=== PATIENT | female | born 1955 | race Two or more races ===

== ENCOUNTER 2021-02-04 14:49 | Inpatient (IN) | payer MEDICARE ==
[~2021-02-04] VITALS: Ht 154.9 cm; Wt 99.8 kg
[2021-02-04] MEDS ORDERED: ALBU8.5H8 IH (17:40)
[2021-02-04] MEDS ORDERED: LOSA25TA27 PO (17:40)
[2021-02-04] MEDS ORDERED: GLIP10TA11 PO (17:40)
[2021-02-04] MEDS ORDERED: BENZ0.5T43 PO (17:40)
[2021-02-04] MEDS ORDERED: METF-442 PO (17:40)
[2021-02-04] MEDS ORDERED: KETO5DRO9 OP (17:40)
[2021-02-04] MEDS ORDERED: ATOR20TA PO (17:40)
[2021-02-04] MEDS ORDERED: ARIP400S IM (17:40)
--- NOTE | 2021-02-04 17:45 | NUR ---
RN NOTE / ADMISSION - 65 Y/O FEMALE ARRIVED IN RESTRAINTS AND ON GURNEY VIA AMBULANCE TO GPS. SHE IS ON 5150 GD. PT SCREAMING, OPPOSITIONAL TO ALL CARE AND QUESTIONING. REFUSING EVERYTHING. REMOVED FROM RESTRAINTS AND PLACED IN BED. SIDE RAILS UP X FOUR. PT REFUSED VS, MRSA, PHOTO AND SKIN CHECK. PT W HX OF SCHIZOPHRENIA, ASTHMA, BIPOLAR DO, HLD, HTN, PVD AND OBESITY. SHE HAS NKA. PT WAS GIVEN MULTIPLE IM INJECTIONS DUE TO LABILE MOOD AND BEHAVIORAL ISSUES. SHE IS STILL QUITE LABILE, IRRITABLE AND LOUD. WILL BE ENDORSING TO NOC SHIFT. DR MCMILLAN AWARE OF ADMISSION AND ORDERS RECEIVED.
[2021-02-04] MEDS ORDERED: ACETAMINOPHEN 325 MG TABLET PO PRN (18:00)
[2021-02-04] MEDS ORDERED: TEMAZEPAM 7.5 MG CAPSULE PO PRN (18:00)
[2021-02-04] MEDS ORDERED: BLOOD SUGAR DIAGNOSTIC 1 EACH STRIP IN ONE (18:00)
[2021-02-04] MEDS ORDERED: MAGNESIUM HYDROXIDE 30 ML UDC PO PRN (18:00)
[2021-02-04] MEDS ORDERED: MAG HYDROX/AL HYDROX/SIMETH 30 ML UDC PO PRN (18:00)
--- NOTE | 2021-02-04 19:17 | NUR ---
Romel Worley ([facility]) notified about the admission and said pt. doesn't have any allergies.
--- NOTE | 2021-02-04 19:35 | NUR ---
PATIENT RECEIVED TO GPS UNIT FROM ANOTHER HOSPITAL BY SEAN RN AT 1745. PER 5150 HOLD, UPON THE PMRT ARRIVED AT THE SCENE, PT. WAS SITTING ON THE FLOOR, BEING NAKED, YELLING & SCREAMING. PER CALLER, SHE HASN'T EATEN ANY FOOD FOR 2 DAYS BECAUSE SHE BELIEVES THAT THE CALLER TRIED TO POISON HER. THE TEAM IDENTIFIED THAT ALL FURNITURE WAS BROKEN, SHE IS SITTING ON THE FLOOR & ONLY WEARING HER UNDERWEAR. SHE DISPLAYS ERRATIC MOODS, YELLING/LAUGHING/CRYING, PT. APPEARS PARANOID/DELUSIONAL, ALLEGING THAT PEOPLE ARE AFTER HER & TRY TO KILL HER. SHE KEEPS REFUSING TO EAT & DRINK. UPON FACE TO FACE ASSESSMENT AT THE BEGINNING OF SHAREMILKER, PT. IS A & O X 1, CONFUSED, DISORIENTED, DISORGANIZED, RESPONDING TO INTERNAL STIMULI, DENIES SI/HI AT THIS TIME BUT AGGRESSIVE, AGITATED, SCREAMING/YELLING, PARANOID, DELUSIONAL, LOUD, DISHEVELED, UNKEMPT, POOR HYGIENE, UNCOOPERATIVE WITH STAFF WITH ADL CARE, NON REDIRECTABLE. PATIENT HAD SOME SNACK & MILK & THREW THE REST OF HER SNACK ON THE FLOOR. PT. IS A FALL RISK DUE TO UNSTEADY GAIT/WEAKNESS. INCONTINENT. NEEDS FREQUENT REDIRECTIONS AT ALL TIMES. BELONGINGS INVENTORIED BY SEAN WALLS. PT. IS UNDER CARE OF DR. WHITEHEAD/DR. MCMILLAN & MEDICAL DR. VEGA. PT'S RIGHTS BOOK PROVIDED. FAMILY MEMBER WAS NOTIFIED BY SEAN RN. PT. REFUSED FLU & PNEUMONIA VACCINE AT THIS TIME. MED RECON DONE BY HARRIS MIGUEL. PT WILL BE ORDERED. PT. CONTINUED TO REFUSE SKIN ASSESSMENT. SAFETY MEASURES IN PLACE. BED ALARM ON. BED IN LOW LOCKED POSITION. WILL CONTINUE TO MONITOR Q 15 MIN FOR SAFETY, MOOD & BEHAVIOR.
--- NOTE | 2021-02-04 19:55 | NUR ---
RN NOTE: REFUSED VITALS PATIENT IS RESTLESS, ANXIOUS, AGITATED WHEN APPROACHED TO CHECK VITALS, BECAME LOUD & AGGRESSIVE TOWARDS STAFF & REFUSED VITALS TO BE CHECKED DESPITE OF EXPLANATIONS.
[2021-02-04] MEDS: METFORMIN 500 MG TABLET PO SCH (20:00)
[2021-02-04] MEDS ORDERED: ALBUTEROL FS 2.5 MG/3 ML VIAL.NEB IH PRN (20:00)
--- NOTE | 2021-02-04 20:52 | NUR ---
RN NOTE: REFUSED METFORMIN PATIENT REFUSED METFORMIN, OFFERED X 3 BUT CONTINUED TO REFUSED DESPITE OF RISKS & BENEFIT EXPLANATIONS, EASILY AGITATED, ANXIOUS, SCREAMS & YELLS. PATIENT ALSO REFUSED BLOOD SUGAR CHECK UPON ADMISSION & AT THIS TIME WELL. PATIENT HAD SMALL AMOUNT OF SNACK & THREW THE REST ON THE FLOOR. PATIENT FALLS ASLEEP INTERMITTENTLY. WILL CONTINUE TO MONITOR THE PATIENT FOR ANY BUDDY.
[2021-02-04] MEDS: BENZTROPINE MESYLATE (1 MG) 1 MG TABLET PO SCH (22:00)
[2021-02-04] MEDS: ATORVASTATIN 10 MG TABLET PO SCH (22:00)
--- NOTE | 2021-02-04 22:36 | NUR ---
RN NOTE: PATIENT REFUSED LIPITOR & COGENTIN SCHEDULED AT 2200 DESPITE OF RISKS & BENEFIT EXPLANATIONS. WILL CONTINUE TO MONITOR THE PT. FOR ANY BUDDY.
--- NOTE | 2021-02-04 23:46 | NUR ---
RN NOTE PATIENT IS SLEEPING COMFORTABLY AT THIS TIME.
[2021-02-05] MEDS: clonazePAM 0.5 MG TABLET PO PRN (02:46)
--- NOTE | 2021-02-05 02:48 | NUR ---
RN NOTE: ANXIETY PATIENT IS ANXIOUS, RESTLESS, CRYING, POUNDING ON THE BED SIDE RAIL, EASILY AGITATED & AGGRESSIVE. PRN KLONOPIN 1 MG PO ADMINISTERED. WILL CONTINUE TO MONITOR FOR ANY CHANGES.
--- NOTE | 2021-02-05 03:15 | NUR ---
RN NOTE: SACRAL REDNESS PATIENT NOTED WITH SACRAL, RIGHT & LEFT BUTTOCK REDNESS. UNABLE TO TAKE PICTURE DUE TO UNCOOPERATIVE BEHAVIOR & AGITATION. CLEANED, KEPT DRY & Z GUARD APPLIED. PATIENT REFUSED FULL SKIN ASSESSMENT & PICTURES TO BE TAKEN.
[2021-02-05] MEDS: Z GUARD REMEDY 2 OZ OINT TP PRN (03:16)
--- NOTE | 2021-02-05 06:05 | NUR ---
RN NOTE PATIENT REFUSED AM LABS, REQUESTED TO SUPERVISING FIRE MARSHAL TO TRY AGAIN LATER.
[2021-02-05] MEDS: glipiZIDE 10 MG TABLET PO SCH (09:00)
[2021-02-05] MEDS: LOSARTAN POTASSIUM 25 MG TABLET PO SCH (09:00)
[2021-02-05] MEDS: METFORMIN 500 MG TABLET PO SCH ×2 (09:00→16:46)
--- NOTE | 2021-02-05 10:13 | NUR ---
GPS RN NOTE: PATIENT LOUD YELLING ,SCREAMING ,UNABLE TO CONTROL BEHAVIOR . REFUSED VS,AM MEDICATIONS , LABS , PT OFFERED KLONOPIN 1 MG PO REFUSED PO MEDS, MEDICATIONS WAIST WITH RN. WILL CONTINUE MONITORING
[2021-02-05 16:00] VITALS: BP 130/70
[2021-02-05] MEDS ORDERED: OLANZAPINE 10 MG VIAL IM STA (16:17)
[2021-02-05] MEDS ORDERED: LORAZEPAM INJ 2 MG/ML VIAL IM STA (16:17)
--- NOTE | 2021-02-05 16:19 | NUR ---
GPS RN NOTE: PATIENT IN THE ROOM YELLING, SCREAMING,LOUD, AGGRESSIVE, NON COMPLIANT WITH PO MEDICATIONS,UNABLE TO CONTROL BEHAVIOR . DR MCMILLAN NOTIFIED WITH NEW ORDER ATIVAN 2 MG IM ONCE ZYPREXA 5 MG IM ONCE ORDER PLACED AND CARED OUT. VSS WILL CONTINUE MONITORING.
[2021-02-05] MEDS: ARIPIPRAZOLE 5 MG TABLET PO SCH (17:00)
[2021-02-05] MEDS: DIVALPROEX SODIUM 125 MG CAP.SPRINK PO SCH (17:00)
--- NOTE | 2021-02-05 20:10 | NUR ---
RN NOTE: REFUSED VITALS PATIENT IS SLEEPING AT THIS TIME & REFUSED VITALS TO BE CHECKED AT THIS TIME WHEN APPROACHED DESPITE OF EXPLANATIONS.
[2021-02-05] MEDS: ATORVASTATIN 10 MG TABLET PO SCH (22:00)
[2021-02-05] MEDS: BENZTROPINE MESYLATE (1 MG) 1 MG TABLET PO SCH (22:00)
--- NOTE | 2021-02-05 22:49 | NUR ---
RN NOTE: PATIENT REFUSED LIPITOR & COGENTIN SCHEDULED AT 2200 DESPITE OF RISKS & BENEFIT EXPLANATIONS, EASILY AGITATED, SLEEPING AT THIS TIME, WHEN WOKE UP TO GIVE THE MEDICINE, PATIENT STATED," YOU ARE FIRED, DON'T BOTHER ME AGAIN." . WILL CONTINUE TO MONITOR THE PT. FOR ANY BUDDY.
--- NOTE | 2021-02-06 03:51 | NUR ---
RN NOTE: REFUSED KLONOPIN PATIENT SLEEPING INTERMITTENTLY AT THIS TIME, RESTLESS, ANXIOUS, LOUD WHEN AWAKE. OFFERED KLONOPIN 1 MG TO THE PT. BUT PATIENT REFUSED TO TAKE KLONOPIN X 3 & STATED," GET OUT, YOU ARE FIRED, I AM A 2 YEAR OLD CHILD, I DON'T TRUST YOU." KLONOPIN 1 MG RETURNED TO OMNICELL. CONTINUING TO MONITOR THE PATIENT FOR MOOD, BEHAVIOR & SAFETY.
--- NOTE | 2021-02-06 06:30 | NUR ---
RN NOTE PATIENT SLEPT 9 HOURS AT NIGHT. UNABLE TO COLLECT CLEAN CATCH URINE SPECIMEN DUE TO PATIENT'S UNCOOPERATIVE BEHAVIOR, PT. IS VERY SLEEPY & DID NOT WANT TO BE BOTHERED WHILE SLEEPING. WILL ENDORSE TO AM RN TO TRY TO COLLECT CLEAN CATCH URINE SPECIMEN, IF UNABLE TO THEN PER AM RN REPORT, DR MARTINEZ ORDERED TO CHANGE THE ORDER TO STRAIGHT CATH TO COLLECT URINE INSTEAD OF CLEAN CATCH WHEN PATIENT IS AWAKE.
--- NOTE | 2021-02-06 06:35 | NUR ---
RN NOTE PATIENT REFUSED AM LABS DESPITE OF RISKS & BENEFITS EXPLANATIONS.
--- NOTE | 2021-02-06 07:40 | NUR ---
MS RN NOTE PATIENT REFUSED VITALS TO BE TAKEN AT THIS TIME.
--- NOTE | 2021-02-06 08:30 | NUR ---
MS RN NOTE PATIENT REFUSED AM MEDICATIONS. EXPLAIN THE RISK AND BENEFITS. PATIENT VERBALIZED "I DON'T NEED TO TAKE ANY MEDICATIONS"
[2021-02-06] MEDS: glipiZIDE 10 MG TABLET PO SCH (09:00)
[2021-02-06] MEDS: LOSARTAN POTASSIUM 25 MG TABLET PO SCH (09:00)
[2021-02-06] MEDS: ARIPIPRAZOLE 5 MG TABLET PO SCH ×2 (09:00→16:49)
[2021-02-06] MEDS: METFORMIN 500 MG TABLET PO SCH ×2 (09:00→16:49)
[2021-02-06] MEDS: DIVALPROEX SODIUM 125 MG CAP.SPRINK PO SCH ×3 (09:00→13:00)
--- NOTE | 2021-02-06 10:30 | NUR ---
MS RN NOTE PATIENT REMAINS UNCOOPERATIVE. REFUSED TO HAVE TREATMENT WITH THE PT.
--- NOTE | 2021-02-06 11:24 | NUR ---
RN NOTE PATIENT IS IN A KIRSTIN CHAIR, SCREAMING, YELLING AND LOUD. OFFERED PT KLONOPIN 1G BUT REFUSED, SAYING "YOU ARE SO LOW". WILL CONTINUE TO MONITOR BEHAVIOR THROUGHOUT THE SHIFT. Addendum: 02/06/21 at 1339 by DAMIAN JOHNSON RN UPDATE: TRIED MIXING IT WITH FOOD BUT PT DIDN'T TAKE IT.
--- NOTE | 2021-02-06 12:40 | NUR ---
RN NOTE PATIENT REFUSED BLOOD DRAW.
[2021-02-06] MEDS: clonazePAM 0.5 MG TABLET PO PRN ×2 (13:00→13:37)
[2021-02-06 16:00] VITALS: BP 125/42
[2021-02-06] MEDS: GLUCERNA SHAKE 237 ML CAN PO SCH (17:00)
--- NOTE | 2021-02-06 18:15 | NUR ---
RN NOTE PATIENT YELLING AND SCREAMING IN THE DINING ROOM CURSING PEOPLE AND STATING SOMEONE IS POISONING HER. TRIED TO CALM THE PATIENT BUT SHE'S BECOMING MORE AGGRESSIVE WHEN APPROACHED. WAS MOVED TO HER ROOM.
--- NOTE | 2021-02-06 18:41 | NUR ---
RN NOTE UNABLE TO DO UA/STRAIGHT CATH TO THE PT BECAUSE OF AGGRESSIVE BEHAVIOR AND CONTINUOUS REFUSAL. WILL ENDORSE TO ONCOMING SHIFT.
--- NOTE | 2021-02-06 20:00 | NUR ---
RN NOTE RECEIVED PATIENT IN BED, NOTED TO BE ANXIOUS, WHEN SPOKE TOO RESTLESS, AGITATED, SCREAMING/YELLING, NON REDIRECTABLE. A & O X 1, RESPONDING TO INTERNAL STIMULI, CONFUSED, FORGETFUL, PARANOID, DELUSIONAL,HYPERVERBAL. PER REPORT PT IS NON COMPLIANT WITH TREATMENT AND MEDICATIONS. AMBULATORY WITH ASSIST GAIT UNSTEADY. HIGH FALL RISK. BED ALARM ACTIVE. DENIES SI/HI AT THIS TIME. IN NO APPARENT ACUTE DISTRESS BED IN LOW LOCKED POSITION. WILL CONTINUE TO MONITOR FOR Q 15 MIN FOR SAFETY, MOOD & BEHAVIOR.
--- NOTE | 2021-02-06 20:56 | NUR ---
REFUSED EVENING MEDICINE PT LAYING IN BED WHEN OFFERED MEDICATION PT BEGAN YELLING, "I DON'T TAKE ANY MEDICINE. YOU PEOPLE ARE STUPID." PT PRECEDED TO THROW PILLOW. PT LEFT ALONE, STAYING IN BED IN NO APPARENT DISTRESS PT HEARD TALKING TO SELF. WILL CONT TO MONITOR.
[2021-02-06] MEDS: BENZTROPINE MESYLATE (1 MG) 1 MG TABLET PO SCH (20:59)
[2021-02-06] MEDS: ATORVASTATIN 10 MG TABLET PO SCH (20:59)
[2021-02-06 21:16] VITALS: BP 114/75
--- NOTE | 2021-02-07 07:30 | NUR ---
RN NOTES PT IN BED, AWAKE, VERBALLY RESPONSIVE, TALKING BY HERSELF, WITH SOME EPISODES OF YELLING, WANTS TO BE LEFT ALONE.
[2021-02-07 08:00] VITALS: BP 133/77
[2021-02-07] MEDS: GLUCERNA SHAKE 237 ML CAN PO SCH ×2 (08:04→17:08)
[2021-02-07] MEDS: ARIPIPRAZOLE 5 MG TABLET PO SCH ×2 (09:00→17:00)
[2021-02-07] MEDS: glipiZIDE 10 MG TABLET PO SCH (09:00)
[2021-02-07] MEDS: DIVALPROEX SODIUM 125 MG CAP.SPRINK PO SCH ×3 (09:00→17:00)
[2021-02-07] MEDS: METFORMIN 500 MG TABLET PO SCH ×2 (09:00→17:00)
[2021-02-07] MEDS: LOSARTAN POTASSIUM 25 MG TABLET PO SCH (09:00)
--- NOTE | 2021-02-07 10:00 | NUR ---
Social Service phone call: SW attempted to contact the fiance (Romel Jones-[phone]) via phone at 10:00 am to do assessment for pt. SW left a voice message to return phone call at social service office ([phone]). Plan: SW will follow up later today.
--- NOTE | 2021-02-07 10:15 | NUR ---
Social Service Phone Call: SW called ETOD/ PMRT (financial services officer/mental health) [facility]- Teetee Perez, ([phone]), via phone at 1015 am regarding the pt's assessment. SW left a voice message to return phone call to social service office ([phone]). Per office sales representative [employer], Teetee Perez, ([phone]) is not in the office today. Plan: HINA will follow up if needed the following day.
--- NOTE | 2021-02-07 13:30 | NUR ---
Social Service phone call: SW second attempted to contact the fiance (Romel Jones-[phone]) via phone at 10:00 am to do assessment for pt. SW left a voice message to return phone call at social service office ([phone]). Plan: social human services assistants will be available as needed.
--- NOTE | 2021-02-07 13:40 | NUR ---
Insurance Adviser Phone Call: SW spoke to Christo Yoder (Admission, Director)to [address] [place] [address] [phone], and pt has been accepted at the facility.
--- NOTE | 2021-02-07 15:15 | NUR ---
Initial Discharge plan: Pt currently resides at home [address], [place] [address] .Pt has been accepted to [address] [place] [address] . SW will work with the pt and the MD appropriate discharged planning. SW will form a safe and proper discharge.
[2021-02-07 16:00] VITALS: BP 120/76
--- NOTE | 2021-02-07 18:19 | NUR ---
RN NOTES PT RESTING IN BED, QUIET AT THIS TIME, RESPIRATIONS NORMAL, SEEN BY DR. MCMILLAN VIA TELEMED, AWARE OF PT'S REFUSALS WITH MEDS AND INTERVENTIONS, WITH EPISODES OF YELLING, PT ATE WITH GOOD APPETITE, NEEDS ATTENDED.
[2021-02-07 20:28] VITALS: BP 119/78
[2021-02-07] MEDS: ATORVASTATIN 10 MG TABLET PO SCH (21:34)
[2021-02-07] MEDS: BENZTROPINE MESYLATE (1 MG) 1 MG TABLET PO SCH (21:34)
--- NOTE | 2021-02-07 22:00 | NUR ---
Nurses notes: Pt refused evening meds @ first, and keep yelling that she's hungry, nurse offered Pt some pudding, and meds was mixed in it, pt ate the puuding with the medicine on it...
[2021-02-08 08:00] VITALS: BP 131/63
[2021-02-08] MEDS: GLUCERNA SHAKE 237 ML CAN PO SCH ×2 (08:00→16:54)
[2021-02-08] MEDS: DIVALPROEX SODIUM 125 MG CAP.SPRINK PO SCH ×4 (09:00→16:54)
[2021-02-08] MEDS: ARIPIPRAZOLE 5 MG TABLET PO SCH ×2 (09:00→16:54)
[2021-02-08] MEDS: LOSARTAN POTASSIUM 25 MG TABLET PO SCH (09:00)
[2021-02-08] MEDS: METFORMIN 500 MG TABLET PO SCH ×2 (09:00→16:54)
[2021-02-08] MEDS: glipiZIDE 10 MG TABLET PO SCH (09:00)
--- NOTE | 2021-02-08 09:00 | NUR ---
gps smooth and burr worker composites: notes pt continue to refuse to take her medications. riese was filed yesterday. also pt throwing her food all over her room. reality orientation provided prn. will continue to monitor.
--- NOTE | 2021-02-08 11:00 | NUR ---
gps air saw operator: notes pt still refusing her breakfast meal when offered. also refused to get out of bed and refusing to go to activity despite encouragement by staff.
[2021-02-08] MEDS: clonazePAM 0.5 MG TABLET PO PRN ×3 (13:21→19:37)
--- NOTE | 2021-02-08 13:30 | NUR ---
gps public stenographer: notes tried other methods by crushing her meds and mixing em with pudding and apple sauce to give her medications, but still refuses. pt remains paranoid by screaming/yelling at staff. will continue to monitor. Addendum: 02/08/21 at 1345 by REGAN SILVERN meds waste with another nurse as a witnessed.
--- NOTE | 2021-02-08 15:30 | NUR ---
gps sales training representative: notes dr. shoemaker covering for dr. shetty on the line and spoke to him over the phone to let him know that pt still refusing her medications, stated, "yes i'm aware, i saw her this morning and riese was filed yesterday."
[2021-02-08 16:00] VITALS: BP 138/80
[2021-02-08 20:13] VITALS: BP 138/68
--- NOTE | 2021-02-08 20:41 | NUR ---
RN NOTES: ANXIETY PT.C/O FEELING ANXIOUS YELLING, SCREAMING, KLONOPIN 1 MG MG PO PRN GIVEN PER PT. REQUEST ,WILL CONTINUE TO MONITOR.
[2021-02-08] MEDS: BENZTROPINE MESYLATE (1 MG) 1 MG TABLET PO SCH (21:24)
[2021-02-08] MEDS: ATORVASTATIN 10 MG TABLET PO SCH (21:28)
--- NOTE | 2021-02-08 21:30 | NUR ---
RN NOTES: REFUSAL MEDICATION PT. REFUSED NIGHT SCHEDULE MEDS COGENTIN 0.5 MG PO ,LIPITOR 20 MG PO, ENCOURAGED X3 STILL REFUSED , PER PT.I CANOT HAVE ANY MEDICATIONS AND MEDS MAKE ME SICK, BEHAVIOR UNCOOPERTIVE ,ANXIOUS, WILL CONTINUITY WITH CARE.
[2021-02-09] MEDS: clonazePAM 0.5 MG TABLET PO PRN ×2 (03:48→19:23)
--- NOTE | 2021-02-09 03:50 | NUR ---
RN NOTES: ANXIETY PT.C/O FEELING,HYPERVERBAL,ANXIOUS YELLING SCREAMING KLONOPIN 1 MG MG PO PRN GIVEN PER PT. REQUEST ,WILL CONTINUE TO MONITOR.
[2021-02-09 07:20] LABS: BASOPHILS # (AUTO) 0.1 /CMM (0.0-0.2); BASOPHILS % (AUTO) 0.5 % (0.0-2.0); EOSINOPHILS % (AUTO) 5.3 % (0.0-6.0); HEMATOCRIT 43 % (33-45); HEMOGLOBIN 13.9 g/dL (11.5-14.8); LYMPHOCYTES # (AUTO) 1.5 /CMM (0.8-4.8); LYMPHOCYTES % (AUTO) 11.7 % (20.0-44.0); MEAN CORPUSCULAR HGB CONC 32 g/dl (31.0-36.0); MEAN CORPUSCULAR VOLUME 85 fL (82-100); MONOCYTES # (AUTO) 1.2 /CMM (0.1-1.30); MONOCYTES % (AUTO) 9.7 % (2.0-12.0); NEUTROPHILS # (AUTO) 9.3 /CMM (1.8-8.9); NEUTROPHILS % (AUTO) 72.8 % (43.0-81.0); PLATELET COUNT (AUTO) 443 /CMM (150-450); RED BLOOD CELL COUNT(AUTO) 5.06 MIL/uL (4.0-5.2); WHITE BLOOD COUNT (AUTO) 12.8 K/uL (4.3-11.0)
[2021-02-09 07:54] LABS: ALBUMIN 2.9 g/dL (3.4-5.0); BILIRUBIN,TOTAL 0.3 mg/dL (0.2-1.0); CALCIUM, SERUM 9.2 mg/dL (8.5-10.1); CREATININE 0.9 mg/dL (0.6-1.3); MAGNESIUM 2.1 mg/dL (1.8-2.4); POTASSIUM 4.1 mmol/L (3.5-5.1); TOTAL PROTEIN, SERUM 7.7 g/dL (6.4-8.2)
[2021-02-09 08:00] VITALS: BP 140/76
[2021-02-09] MEDS: GLUCERNA SHAKE 237 ML CAN PO SCH ×2 (08:11→17:40)
[2021-02-09] MEDS: DIVALPROEX SODIUM 125 MG CAP.SPRINK PO SCH ×3 (09:00→17:00)
[2021-02-09] MEDS: METFORMIN 500 MG TABLET PO SCH ×2 (09:00→17:00)
[2021-02-09] MEDS: glipiZIDE 10 MG TABLET PO SCH (12:11)
[2021-02-09] MEDS: LOSARTAN POTASSIUM 25 MG TABLET PO SCH (12:11)
[2021-02-09] MEDS: ARIPIPRAZOLE 5 MG TABLET PO SCH (12:11)
[2021-02-09 16:00] VITALS: BP 130/97
--- NOTE | 2021-02-09 16:00 | NUR ---
REFUSED NEW HALDOL PO MED SO INJECTION GIVEN WITH MUCH RESISTANCE AND FIGHTING.
[2021-02-09] MEDS: HALOPERIDOL 5 MG TABLET PO SCH ×2 (16:05→17:00)
[2021-02-09] MEDS: HALOPERIDOL LACTATE INJ 5 MG/ML VIAL IM PRN ×2 (16:10→17:35)
--- NOTE | 2021-02-09 17:36 | NUR ---
HALDOL INJECTION WITHHELD AT THIS TIME PT. JUST HAD INJECTION AT 1610 TODAY.
--- NOTE | 2021-02-09 19:10 | NUR ---
RN NOTES: REFUSED SKIN ASSESSMENT PT. VISUALLY NOTED WITH SACRAL REDNESS ,REFUSED SKIN ASSESSMENT AND PICTURES TAKEN HYPERVERBAL ANXIOUS YELLING SCREAMING ,UNCOOPRTIVE, ENCOURAGED X3 RISKS AND BENEFITS EXPLINED, PT. STRONGLY REFUSED SKIN ASESSMENT, WILL CONTINUE TO MONITOR.
--- NOTE | 2021-02-09 19:23 | NUR ---
RN NOTES: ANXIETY PT.C/O FEELING , HYPERVERBAL ANXIOUS YELLING SCREAMING KLONOPIN 1 MG MG PO PRN GIVEN PER PT. REQUEST ,WILL CONTINUE TO MONITOR.
[2021-02-09 20:49] VITALS: BP 134/63
[2021-02-09] MEDS: Z GUARD REMEDY 2 OZ OINT TP PRN (21:26)
[2021-02-09] MEDS: ATORVASTATIN 10 MG TABLET PO SCH (22:00)
[2021-02-09] MEDS: BENZTROPINE MESYLATE (1 MG) 1 MG TABLET PO SCH (22:10)
--- NOTE | 2021-02-09 22:11 | NUR ---
RN NOTES: REFUSAL MEDICATION PT. REFUSED NIGHT SCHEDULE MEDS ,LIPITOR 20 MG PO, ENCOURAGED X3 STILL REFUSED , PER PT.I CANOT TAKE MEDICATIONS MAKE ME SICK, PT. TOOK COGENTIN 0.5 MG PO, WILL CONTINUITY WITH CARE.
--- NOTE | 2021-02-09 22:14 | NUR ---
RN NOTES: ENCOURAGED PT. FOR MEDS, WITH ALOT OF ENCOURAGEMENT PT. TOOK NIGHT MEDS COGENTIN 0.5MG PO . WILL CONTINUITY WITH CARE.
--- NOTE | 2021-02-10 01:32 | NUR ---
RN NOTES: INSOMNIA PT. C/O INSOMNIA RESTORIL 15 MG PO PRN GIVEN PER PT. REQUEST, WILL CONTINUE TO MONITOR.
[2021-02-10] MEDS: Z GUARD REMEDY 2 OZ OINT TP PRN (06:07)
[2021-02-10 08:00] VITALS: BP 136/67
[2021-02-10] MEDS: GLUCERNA SHAKE 237 ML CAN PO SCH ×2 (08:57→17:20)
[2021-02-10] MEDS: DIVALPROEX SODIUM 125 MG CAP.SPRINK PO SCH ×3 (08:58→16:57)
[2021-02-10] MEDS: LOSARTAN POTASSIUM 25 MG TABLET PO SCH (08:58)
[2021-02-10] MEDS: METFORMIN 500 MG TABLET PO SCH ×2 (08:58→16:57)
[2021-02-10] MEDS: HALOPERIDOL 5 MG TABLET PO SCH ×2 (08:59→16:57)
[2021-02-10] MEDS: glipiZIDE 10 MG TABLET PO SCH (08:59)
[2021-02-10] MEDS: HALOPERIDOL LACTATE INJ 5 MG/ML VIAL IM PRN ×2 (09:01→16:57)
--- NOTE | 2021-02-10 12:35 | NUR ---
Social Service phone call: SW third attempted to contact the fiance (Romel Rdphjujk-[phone]) via phone at 12:10 pm to do assessment for pt. SW left a voice message to return phone call at social service office ([phone])
--- NOTE | 2021-02-10 15:11 | NUR ---
Phone Call (Discharge Plan): HINA spoke with the (Romel Jones, ) via phone at 1505pm regarding discharge planning. The (Romel Jones, ) request the pt be discharge back to home once the pt is medically cleared. Plan: HINA and will coordinate a safe discharge plan for the pt.
[2021-02-10 16:00] VITALS: BP 143/76
[2021-02-10 20:07] VITALS: BP 143/79
[2021-02-10] MEDS: BENZTROPINE MESYLATE (1 MG) 1 MG TABLET PO SCH (21:57)
--- NOTE | 2021-02-10 21:57 | NUR ---
GPS-RN NOTES: MEDICATION REFUSAL PATIENT REFUSED LIPITOR AND COGENTIN SCHEDULED FOR TONIGHT. EDUCATED PATIENT REGARDING MEDICATION COMPLIANCE BUT PATIENT CONTINUED TO REFUSE. PATIENT YELLED "GET OUT OF HERE". WILL CONTINUE TO MONITOR.
[2021-02-10] MEDS: ATORVASTATIN 10 MG TABLET PO SCH (21:58)
[2021-02-11 08:00] VITALS: BP 115/61
[2021-02-11] MEDS: GLUCERNA SHAKE 237 ML CAN PO SCH ×2 (08:00→16:27)
[2021-02-11] MEDS: LOSARTAN POTASSIUM 25 MG TABLET PO SCH (09:00)
[2021-02-11] MEDS: glipiZIDE 10 MG TABLET PO SCH (09:00)
[2021-02-11] MEDS: METFORMIN 500 MG TABLET PO SCH ×2 (09:00→16:27)
[2021-02-11] MEDS: HALOPERIDOL 5 MG TABLET PO SCH ×2 (09:00→21:52)
[2021-02-11] MEDS: DIVALPROEX SODIUM 125 MG CAP.SPRINK PO SCH ×3 (09:00→16:27)
--- NOTE | 2021-02-11 09:00 | NUR ---
RN NOTE- PT ALERT CONFUSED AGGRESSIVE LOUD OPPOITIONAL TO CARE REFUSES MEDS , CARE, ADLS PT IS DELUSIONAL/PSYCHOTIC. RX GIVEN HALDOL 5 MG IM W STAFF ASSIST.
[2021-02-11] MEDS: HALOPERIDOL LACTATE INJ 5 MG/ML VIAL IM PRN ×2 (09:17→21:46)
--- NOTE | 2021-02-11 14:25 | NUR ---
RN NOTE- PT NOTED TO HAVE COUGH. PT W NON PRODUCTIVE COUGH. AFEBRILE . SPOKE W OPERATIONS ACCOUNTANT MADDISON. CXR ORDERED
--- NOTE | 2021-02-11 15:50 | NUR ---
RN NOTE- CXR DONE RESULTS - UNREMARKABLE. PATIENT SUPPORT TECH MADE AWARE
[2021-02-11 16:00] VITALS: BP 117/65
[2021-02-11] MEDS ORDERED: HALOPERIDOL DECANOATE IM 100 MG/ML AMPUL IM ONE (17:00)
[2021-02-11 20:22] VITALS: BP 128/57
--- NOTE | 2021-02-11 21:05 | NUR ---
GPS-RN NOTES: MEDICATION REFUSAL PATIENT REFUSED HALDOL PO, LIPITOR AND COGENTIN SCHEDULED FOR TONIGHT. EDUCATED PATIENT REGARDING MEDICATION COMPLIANCE BUT PATIENT CONTINUED TO REFUSE. PATIENT STATED "I DON'T TAKE ANY MEDICATIONS". 2151 - FOR EACH REFUSAL OF HALDOL PO. ADMINISTERED HALDOL 2MG IM ON RIGHT GLUTEAL AREA, WITH THE HELP OF STAFF. PROCEDURE TOLERATED WELL. WILL CONTINUE TO MONITOR FOR PATIENT'S SAFETY.
[2021-02-11] MEDS: BENZTROPINE MESYLATE (1 MG) 1 MG TABLET PO SCH (21:52)
[2021-02-11] MEDS: ATORVASTATIN 10 MG TABLET PO SCH (21:52)
[2021-02-12 08:00] VITALS: BP 158/82
[2021-02-12] MEDS: DIVALPROEX SODIUM 125 MG CAP.SPRINK PO SCH ×3 (08:11→16:03)
[2021-02-12] MEDS: LOSARTAN POTASSIUM 25 MG TABLET PO SCH (08:11)
[2021-02-12] MEDS: glipiZIDE 10 MG TABLET PO SCH (08:11)
[2021-02-12] MEDS: METFORMIN 500 MG TABLET PO SCH ×2 (08:11→16:03)
[2021-02-12] MEDS: GLUCERNA SHAKE 237 ML CAN PO SCH ×2 (08:11→16:03)
--- NOTE | 2021-02-12 09:00 | NUR ---
RN NOTE- PT CALM QUIET THUS FAR THIS MORNING, CONFUSED, DELUSIONAL, REMOVES DIAPER THEN DEFECATES AND URINATES IN BED. REDIRECTION REORIENTATION ATTEMPTED. PT PO INTAKE FAIR, REFUSES ALL RX
[2021-02-12 16:00] VITALS: BP 155/81
[2021-02-12 20:07] VITALS: BP 143/74
[2021-02-12] MEDS: BENZTROPINE MESYLATE (1 MG) 1 MG TABLET PO SCH (21:02)
[2021-02-12] MEDS: HALOPERIDOL 5 MG TABLET PO SCH (21:03)
[2021-02-12] MEDS: ATORVASTATIN 10 MG TABLET PO SCH (21:03)
[2021-02-12] MEDS: HALOPERIDOL LACTATE INJ 5 MG/ML VIAL IM PRN (21:09)
--- NOTE | 2021-02-13 05:51 | NUR ---
AWAKE THIS AM. YELLING AND SRIKING OUT AT THE NURSE WHEN SHE WENT TO PUT HER IN A CHAIR. SHE IS SWAERING AND LIFTING UP HER SKIRT AND EXPOSING HERSELF. SHE IS CONFUSED AND THRU A COMB AT THE NURSE. UNSTEADY ON HER LEGS. ANGRY AND VERBALLY MEAN
[2021-02-13 08:00] VITALS: BP 135/73
[2021-02-13] MEDS: GLUCERNA SHAKE 237 ML CAN PO SCH ×2 (08:23→17:20)
[2021-02-13] MEDS: glipiZIDE 10 MG TABLET PO SCH (09:00)
[2021-02-13] MEDS: LOSARTAN POTASSIUM 25 MG TABLET PO SCH (09:00)
[2021-02-13] MEDS: DIVALPROEX SODIUM 125 MG CAP.SPRINK PO SCH ×3 (09:00→17:00)
[2021-02-13] MEDS: METFORMIN 500 MG TABLET PO SCH ×2 (09:00→17:00)
--- NOTE | 2021-02-13 12:09 | NUR ---
RN NOTE PATIENT KEEPS REFUSING ALL THE MEDICATIONS, DESPITE MULTIPLE ATTEMPTS, PATIENT GETS AGITATED, STARTS SCREAMING AND VERBALIZING THAT SHE DOES NOT TAKE ANY MEDICATIONS EVER.
[2021-02-13] MEDS: clonazePAM 0.5 MG TABLET PO PRN (15:25)
[2021-02-13 16:00] VITALS: BP 128/79
[2021-02-13 20:03] VITALS: BP 137/89
[2021-02-13 20:54] VITALS: BP 137/85
--- NOTE | 2021-02-13 21:10 | NUR ---
RN NOTE: REFUSED SKIN ASSESSMENT PT. IS VERY UNCOOPERATIVE, AGITATED, AGGRESSIVE, SCREAMS/YELLS, REFUSED TO BE TOUCHED AT ALL. PARANOID, DELUSIONAL. PATIENT REFUSED WEEKLY SKIN ASSESSMENT X 3. NON COMPLAINT WITH CARE.
[2021-02-13] MEDS: BENZTROPINE MESYLATE (1 MG) 1 MG TABLET PO SCH (21:56)
[2021-02-13] MEDS: ATORVASTATIN 10 MG TABLET PO SCH (21:56)
[2021-02-13] MEDS: HALOPERIDOL 5 MG TABLET PO SCH (21:56)
--- NOTE | 2021-02-13 21:57 | NUR ---
GPS/RN NOTES: MEDICATION REFUSAL PATIENT REFUSED HALDOL PO, LIPITOR AND COGENTIN SCHEDULED FOR TONIGHT. EDUCATED PATIENT REGARDING MEDICATION COMPLIANCE BUT PATIENT CONTINUED TO REFUSE. PATIENT STATED "I DON'T TAKE NEED IT, DON'T TELL ME WHAT TO DO, BE QUIET". FOR EACH REFUSAL OF HALDOL PO. WILL ADMINISTER HALDOL IM ORDERED. WILL CONTINUE TO MONITOR FOR PATIENT'S SAFETY
[2021-02-13] MEDS: HALOPERIDOL LACTATE INJ 5 MG/ML VIAL IM PRN (22:29)
--- NOTE | 2021-02-13 22:30 | NUR ---
RN NOTE: HALDOL IM GIVEN PATIENT REFUSED HALDOL PO SCHEDULED, PT. IS RIESED & FOR EACH HALDOL REFUSAL, IM HALDOL 10 MG IS ORDERED. HALDOL 10 MG IM ADMINISTERED WITH THE HELP OF STAFF. PT. GOT AGITATED & YELLING, REDIRECTED THE PATIENT. OFFERED SNACK BUT PT. REFUSED AT THIS TIME. WILL CONTINUE TO MONITOR THE PATIENT FOR ANY BUDDY.
--- NOTE | 2021-02-14 05:29 | NUR ---
RN NOTE PATIENT WOKE UP, HAD SNACK & PO FLUIDS & WENT BACK TO BED. PT. URINATES IN BED, REFUSED TO WEAR DIAPER. BED SHEETS CHANGED. REFUSES TO GET ASSISTANCE WITH TRANSFERS FROM BED TO CHAIR & TRANSFERS HERSELF SLOWLY AT HER OWN PACE. WILL CONTINUE TO MONITOR.
[2021-02-14 08:00] VITALS: BP 133/53
[2021-02-14] MEDS: GLUCERNA SHAKE 237 ML CAN PO SCH ×2 (08:00→17:00)
[2021-02-14] MEDS: DIVALPROEX SODIUM 125 MG CAP.SPRINK PO SCH ×3 (09:00→17:00)
[2021-02-14] MEDS: glipiZIDE 10 MG TABLET PO SCH (09:00)
[2021-02-14] MEDS: LOSARTAN POTASSIUM 25 MG TABLET PO SCH (09:00)
[2021-02-14] MEDS: METFORMIN 500 MG TABLET PO SCH ×2 (09:00→17:00)
--- NOTE | 2021-02-14 10:11 | NUR ---
Family Contact: SW called the pts , Romel Jones ([phone]), and left a voicemail stating that the SW would like to confirm the pts discharge plan as it is stated in the notes that she was accepted to a facility but there is also a note stating that the would like the pt to return home.
[2021-02-14] MEDS ORDERED: HALOPERIDOL DECANOATE IM 100 MG/ML AMPUL IM ONE (15:00)
[2021-02-14 16:00] VITALS: BP 123/76
[2021-02-14 21:19] VITALS: BP 124/72
[2021-02-14] MEDS: HALOPERIDOL LACTATE INJ 5 MG/ML VIAL IM PRN (21:57)
[2021-02-14] MEDS: BENZTROPINE MESYLATE (1 MG) 1 MG TABLET PO SCH (21:58)
[2021-02-14] MEDS: HALOPERIDOL 5 MG TABLET PO SCH (21:58)
[2021-02-14] MEDS: ATORVASTATIN 10 MG TABLET PO SCH (21:59)
[2021-02-15 08:00] VITALS: BP 129/83
[2021-02-15] MEDS: GLUCERNA SHAKE 237 ML CAN PO SCH ×2 (08:37→16:55)
[2021-02-15] MEDS: LOSARTAN POTASSIUM 25 MG TABLET PO SCH (08:37)
[2021-02-15] MEDS: glipiZIDE 10 MG TABLET PO SCH (08:39)
[2021-02-15] MEDS: METFORMIN 500 MG TABLET PO SCH ×2 (08:39→16:55)
[2021-02-15] MEDS: DIVALPROEX SODIUM 125 MG CAP.SPRINK PO SCH ×3 (08:39→16:55)
--- NOTE | 2021-02-15 13:22 | NUR ---
ALERT AND ORIENTED X1,CONFUSED,REMAINS IN DINING RM. WITH CONSTANT SUPERVISION.
[2021-02-15 16:00] VITALS: BP 154/85
--- NOTE | 2021-02-15 16:23 | NUR ---
Family Contact: HINA called the pts , Romel Jones ([phone]), to inform him that the pt is going to be discharged the following day and he stated that he spoke to the pt today and felt that she was "out of it" and did not feel comfortable. SW stated that she will inform the MD.
[2021-02-15 21:01] VITALS: BP 139/74
[2021-02-15] MEDS: HALOPERIDOL 5 MG TABLET PO SCH (22:00)
[2021-02-15] MEDS: ATORVASTATIN 10 MG TABLET PO SCH (22:00)
[2021-02-15] MEDS: BENZTROPINE MESYLATE (1 MG) 1 MG TABLET PO SCH (22:00)
[2021-02-15] MEDS: HALOPERIDOL LACTATE INJ 5 MG/ML VIAL IM PRN (22:05)
--- NOTE | 2021-02-15 22:12 | NUR ---
GPS RN NOTE: PATIENT REFUSED HALDOL PO SCHEDULED. PATIENT IS RIESED, HALDOL 10MG IM GIVEN ORDERED WHEN PATIENT REFUSES PO HALDOL. PATIENT HAS NO S/S OF DISTRESS. CURRENTLY IN DAY ROOM WATCHING TV AND LOUD. WILL CONTINUE TO MONITOR.
--- NOTE | 2021-02-16 06:31 | NUR ---
GPS RN CLOSING NOTES: PATIENT SITTING ON CHAIR IN ROOM, AWAKE, A/O X1, SLEPT 6HOURS THIS SHIFT. NO S/S OF DISTRESS. NO C/O PAIN. RESPIRATION EVEN AND UNLABORED WITH EQUAL RISE AND FALL OF THE CHEST ON ROOM AIR. OFFERED FLUID TOLERATED. ALL PATIENT CARE NEEDS HAVE BEEN MET ANTICIPATED. WILL CONTINUE TO MONITOR FOR SAFETY, MOOD AND BEHAVIOR AND ENDORSE TO AM SHIFT.
[2021-02-16 08:00] VITALS: BP 128/66
[2021-02-16] MEDS: GLUCERNA SHAKE 237 ML CAN PO SCH ×2 (08:05→16:32)
[2021-02-16] MEDS: DIVALPROEX SODIUM 125 MG CAP.SPRINK PO SCH ×4 (08:16→17:00)
[2021-02-16] MEDS: glipiZIDE 10 MG TABLET PO SCH (08:16)
[2021-02-16] MEDS: LOSARTAN POTASSIUM 25 MG TABLET PO SCH (08:16)
[2021-02-16] MEDS: METFORMIN 500 MG TABLET PO SCH ×2 (08:16→16:33)
--- NOTE | 2021-02-16 09:00 | NUR ---
RN NOTE- PT AGITATED, REDIRECTED. ALERT AND ORIENTED TO PERSON. PO INTAKE FAIR. REFUSES MEDICATIONS.
--- NOTE | 2021-02-16 10:05 | NUR ---
MD Contact: SW contacted the pts MD, Dr. Harvey, and informed him that the pt has been observed to be screaming, shouting, getting naked, and behaving inappropriately. SW stated that the pts also felt that she was not ready to be discharged today. Pts MD ordered an IM and cancelled the pts discharge for today.
[2021-02-16] MEDS ORDERED: LORAZEPAM INJ 2 MG/ML VIAL IM STA (10:12)
[2021-02-16] MEDS ORDERED: OLANZAPINE 10 MG VIAL IM STA (10:12)
--- NOTE | 2021-02-16 10:13 | NUR ---
Family Contact: SW called the pts , Romel Jones ([phone]), and informed him that the pt is not going to be discharged today as she has been behaving inappropriately and also received an IM today. Pts states that she needs to improve before he can take her home.
--- NOTE | 2021-02-16 10:20 | NUR ---
RN NOTE- AGITATION/ PT ANXIOUS SCREAMING LABILE OPPOSITIONAL TO CARE AND THREATENING. DR MCMILLAN ORDERED ZYPREXA 5 MG AND ATIVAN 2 MG IM STAT. COMPLIED. ADMINISTERED W STAFF AND FEMALE ASSIST
--- NOTE | 2021-02-16 11:30 | NUR ---
RN NOTE-PT QUIETLY SLEEPING IN ROOM. RX EFFECTIVE
--- NOTE | 2021-02-16 12:44 | NUR ---
RN NOTE- 1300 RX NOT ADMINISTERED PT IS SLEEPING FROM EMERGENCY IM
[2021-02-16 13:00] LABS: BASOPHILS # (AUTO) 0.1 /CMM (0.0-0.2); BASOPHILS % (AUTO) 0.6 % (0.0-2.0); HEMATOCRIT 45 % (33-45); HEMOGLOBIN 14.1 g/dL (11.5-14.8); LYMPHOCYTES # (AUTO) 1.6 /CMM (0.8-4.8); LYMPHOCYTES % (AUTO) 13.7 % (20.0-44.0); MEAN CORPUSCULAR HGB CONC 32 g/dl (31.0-36.0); MEAN CORPUSCULAR VOLUME 85 fL (82-100); MONOCYTES # (AUTO) 0.9 /CMM (0.1-1.30); MONOCYTES % (AUTO) 7.6 % (2.0-12.0); NEUTROPHILS # (AUTO) 8.6 /CMM (1.8-8.9); NEUTROPHILS % (AUTO) 73.1 % (43.0-81.0); PLATELET COUNT (AUTO) 465 /CMM (150-450); RED BLOOD CELL COUNT(AUTO) 5.27 MIL/uL (4.0-5.2); WHITE BLOOD COUNT (AUTO) 11.8 K/uL (4.3-11.0)
[2021-02-16 13:12] LABS: CREATININE 0.9 mg/dL (0.6-1.3); POTASSIUM 4.3 mmol/L (3.5-5.1)
[2021-02-16 16:00] VITALS: BP 147/72
--- NOTE | 2021-02-16 16:30 | NUR ---
rRN NOTE- PT FOUND BY STAFF SITTING I FRONT OF MARTIR CHAIR. PT HAD SLID DOWN TO A SEATED POSITION. NO INJURIES NOTED. VS STABLE. ASSISTED TO BR AND REPOSITIONED IN CHAIR. DR MCMILLAN NOTIFIED, MIGUEL MOORE NOTIFIED. INCIDENT REPORT COMPLETED. PT PLACED IN HALLWAY LINE OF SIGHT. SLEEPING NOW.
[2021-02-16 20:00] VITALS: BP 138/86
[2021-02-16] MEDS: HALOPERIDOL 5 MG TABLET PO SCH (22:00)
[2021-02-16] MEDS: BENZTROPINE MESYLATE (1 MG) 1 MG TABLET PO SCH (22:00)
[2021-02-16] MEDS: ATORVASTATIN 10 MG TABLET PO SCH (22:00)
[2021-02-16] MEDS: HALOPERIDOL LACTATE INJ 5 MG/ML VIAL IM PRN (22:18)
--- NOTE | 2021-02-16 22:20 | NUR ---
GPS RN NOTE: PATIENT REFUSED 2200 HALDOL PO SCHEDULED. PATIENT IS RIESED, HALDOL 10MG/ML IM GIVEN ORDERED WHEN PATIENT REFUSES PO HALDOL. PATIENT HAS NO S/S OF DISTRESS. RESPIRATION EVEN AND UNLABORED WITH EQUAL RISE AND FALL OF THE CHEST ON ROOM AIR. PATIENT IS CURRENTLY YELLING AND CURSING. WILL CONTINUE TO MONITOR.
--- NOTE | 2021-02-16 22:30 | NUR ---
GPS RN NOTES: PATIENT ENCOURAGED TO USE COMMODE TO GET URINE FOR UA BUT PATIENT BECAME AGITATED, SCREAMING, CURSING, AGGRESSIVE, REFUSING TO USE COMMODE. PATIENT ALSO REFUSED IN&OUT CATHETERIZATION TO GET URINE. WILL TRY AGAIN.
--- NOTE | 2021-02-17 07:08 | NUR ---
GPS RN CLOSING NOTES: PATIENT SITTING ON CHAIR IN ROOM, AWAKE, A/O X1, SLEPT 3HOURS THIS SHIFT. NO S/S OF DISTRESS. NO C/O PAIN. RESPIRATION EVEN AND UNLABORED WITH EQUAL RISE AND FALL OF THE CHEST ON ROOM AIR. OFFERED FLUID TOLERATED. ALL PATIENT CARE NEEDS HAVE BEEN MET ANTICIPATED. WILL CONTINUE TO MONITOR FOR SAFETY, MOOD AND BEHAVIOR AND ENDORSE TO AM SHIFT.
[2021-02-17 08:00] VITALS: BP 112/57
[2021-02-17] MEDS: GLUCERNA SHAKE 237 ML CAN PO SCH ×2 (08:00→17:15)
[2021-02-17] MEDS: DIVALPROEX SODIUM 125 MG CAP.SPRINK PO SCH ×2 (09:00→16:17)
[2021-02-17] MEDS: METFORMIN 500 MG TABLET PO SCH ×2 (09:00→16:17)
[2021-02-17] MEDS: LOSARTAN POTASSIUM 25 MG TABLET PO SCH (09:00)
[2021-02-17] MEDS: glipiZIDE 10 MG TABLET PO SCH (09:00)
[2021-02-17] MEDS: HALOPERIDOL LACTATE INJ 5 MG/ML VIAL IM PRN ×2 (09:47→22:42)
--- NOTE | 2021-02-17 10:03 | NUR ---
MS/RN NOTE: PATIENT REFUSED ALL ORAL MORNING MEDICATIONS. PATIENT REFUSED HALDOL PO. PATIENT IS AGITATED, YELLING AND SCREAMING AT STAFF, ATTEMPTING TO PHYSICALLY HURT STAFF, REFUSING TO COOPERATE, HALDOL 10MG/ML IM GIVEN ORDERED WHEN PATIENT REFUSES PO HALDOL. PATIENT HAS NO S/S OF DISTRESS. RESPIRATION EVEN, NONLABORED WITH EQUAL RISE AND FALL OF THE CHEST ON ROOM AIR. PATIENT IS CURRENTLY YELLING AND CURSING, PATIENT WAS PUT ON GERICHAIR WITH 2 CNAS AND 1 BOOKBINDING MACHINE OPERATOR AND 1 RN. WILL CONTINUE TO MONITOR ENSURE SAFETY.
--- NOTE | 2021-02-17 10:03 | NUR ---
MS/RN NOTE CHAGE NURSE AWARE OF IM MEDICATION GIVEN, CHARGE NURSE PRESENT DURING MEDICATION ADMINISTRATION.
[2021-02-17 16:00] VITALS: BP 135/51
[2021-02-17] MEDS: DIVALPROEX SODIUM 250 MG TABLET.DR PO SCH (18:00)
--- NOTE | 2021-02-17 19:10 | NUR ---
MS/RN NOTE ATTEMPTED TO OBTAIN URINE SAMPLE PATIENT WAS NON COMPLIANT AND REFUSED TO COOPERATE. PATIENT BECAME VERBALLY ABUSIVE AND AGITATED WHEN ASKED ABOUT OBTAINING URINE SAMPLE. ATTEMPTED THROUGHOUT THE SHIFT, PATIENT REFUSED EACH TIME WHEN ASKED.
[2021-02-17 19:51] VITALS: BP 126/86
[2021-02-17 19:55] VITALS: BP 136/86
[2021-02-17] MEDS: BENZTROPINE MESYLATE (1 MG) 1 MG TABLET PO SCH (22:00)
[2021-02-17] MEDS: HALOPERIDOL 5 MG TABLET PO SCH (22:00)
[2021-02-17] MEDS: ATORVASTATIN 10 MG TABLET PO SCH (22:00)
--- NOTE | 2021-02-17 22:23 | NUR ---
GPS/RN NOTES: MEDICATION REFUSAL PATIENT REFUSED HALDOL PO, LIPITOR AND COGENTIN SCHEDULED FOR TONIGHT. EDUCATED PATIENT REGARDING MEDICATION COMPLIANCE BUT PATIENT CONTINUED TO REFUSE. PATIENT STATED "I DON'T TAKE ANY MEDICINE & I DON'T NEED IT". FOR EACH REFUSAL OF HALDOL PO. WILL ADMINISTER HALDOL IM ORDERED. WILL CONTINUE TO MONITOR FOR PATIENT'S SAFETY
--- NOTE | 2021-02-17 22:36 | NUR ---
RN NOTE: HELD HALDOL IM PER EMAR RECORDS SHOWS THAT PATIENT WAS GIVEN HALDOL 10 MG IM AT 0947 ON 02/17/21 DURING DAY SHIFT. PATIENT REFUSED HALDOL PO TONIGHT. CHARGE NURSE CALLED DR. MCMILLAN & VERIFIED THAT PT. WAS GIVEN HALDOL 10 MG IM IN AM & REFUSED HALDOL PO TONIGHT, PT. IS RIESED. DR. MCMILLAN ORDERED NOT TO GIVE HALDOL IM TONIGHT SINCE IT WAS GIVEN IN AM. WILL CONTINUE TO MONITOR THE PATIENT FOR SAFETY, MOOD & BEHAVIOR.
--- NOTE | 2021-02-18 06:51 | NUR ---
RN NOTE ATTEMPTED TO OBTAIN URINE SPECIMEN PATIENT WAS NON COMPLIANT AND REFUSED TO COOPERATE. PATIENT BECAME VERBALLY ABUSIVE AND AGITATED WHEN ASKED ABOUT OBTAINING URINE SAMPLE. ATTEMPTED THROUGHOUT THE SHIFT, BED SIDE COMMODE PROVIDED. PATIENT REFUSED EACH TIME WHEN ASKED. PATIENT IS INCONTINENT AT TIMES & USES DIAPER & STRONGLY REFUSED IN & OUT CATH WELL. WILL ENDORSE TO AM RN TO TRY TO COLLECT URINE SPECIMEN WHILE PT. IS AWAKE.
--- NOTE | 2021-02-18 07:09 | NUR ---
RN NOTE PATIENT NOTED TO BE IN BETTER MOOD, CLEANED HERSELF WITH SOAP & WATER, GROOMED HERSELF, WALKS FEW STEPS SLOWLY ON HER OWN PACE, CHANGED HER GOWN, HAD BM, COOPERATIVE WITH CARE AT THIS TIME, CALM & REDIRECTABLE. ENDORSED TO AM RN.
[2021-02-18 08:00] VITALS: BP 133/77
[2021-02-18] MEDS: GLUCERNA SHAKE 237 ML CAN PO SCH ×2 (08:00→16:17)
[2021-02-18] MEDS: LOSARTAN POTASSIUM 25 MG TABLET PO SCH (08:49)
[2021-02-18] MEDS: DIVALPROEX SODIUM 125 MG CAP.SPRINK PO SCH ×2 (08:50→16:17)
[2021-02-18] MEDS: METFORMIN 500 MG TABLET PO SCH ×2 (08:50→16:17)
[2021-02-18] MEDS: glipiZIDE 10 MG TABLET PO SCH (08:50)
[2021-02-18] MEDS: DIVALPROEX SODIUM 250 MG TABLET.DR PO SCH (13:00)
--- NOTE | 2021-02-18 13:30 | NUR ---
RN NOTE PATIENT IS UNCOOPERATIVE, REFUSING ALL THE MEDICATIONS, REFUSING COLLECTION OF THE URINE, ANGRY AND DOES NOT LIKE TO BE BOTHERED BY ANY ANYTHING.
[2021-02-18 16:00] VITALS: BP 128/72
[2021-02-18 20:00] VITALS: BP 131/78
[2021-02-18 20:23] VITALS: BP 131/78
[2021-02-18] MEDS: BENZTROPINE MESYLATE (1 MG) 1 MG TABLET PO SCH (22:00)
[2021-02-18] MEDS: ATORVASTATIN 10 MG TABLET PO SCH (22:00)
[2021-02-18] MEDS: HALOPERIDOL 5 MG TABLET PO SCH (22:00)
--- NOTE | 2021-02-18 22:20 | NUR ---
GPS/RN NOTES: MEDICATION REFUSAL PATIENT REFUSED HALDOL PO, LIPITOR AND COGENTIN SCHEDULED FOR TONIGHT. EDUCATED PATIENT REGARDING MEDICATION COMPLIANCE BUT PATIENT CONTINUED TO REFUSE. PATIENT STATED SAME THING AGAIN "I DON'T TAKE ANY MEDICINE & I DON'T NEED IT". CHARGE NURSE MADE AWARE.
[2021-02-18] MEDS: HALOPERIDOL LACTATE INJ 5 MG/ML VIAL IM PRN (22:28)
--- NOTE | 2021-02-18 22:30 | NUR ---
RN NOTE: HALDOL IM GIVEN PATIENT REFUSED HALDOL PO SCHEDULED, PT. IS RIESED & FOR EACH HALDOL REFUSAL, IM HALDOL 10 MG IS ORDERED. HALDOL 10 MG IM ADMINISTERED WITH THE HELP OF STAFF. PT. GOT AGITATED BUT REDIRECTABLE. OFFERED SNACK. WILL CONTINUE TO MONITOR THE PATIENT FOR ANY BUDDY.
--- NOTE | 2021-02-18 23:30 | NUR ---
RN NOTE PATIENT REFUSED TO USE THE BED SIDE COMMODE FOR URINE SPECIMEN COLLECTION. PREFERS TO USE A DIAPER. VERY SUSPICIOUS, PARANOID & DELUSIONAL. PATIENT IS UNCOOPERATIVE & NON COMPLAINT WITH PLAN OF CARE.
[2021-02-19 08:00] VITALS: BP 119/64
[2021-02-19] MEDS: GLUCERNA SHAKE 237 ML CAN PO SCH ×2 (08:31→17:00)
[2021-02-19] MEDS: DIVALPROEX SODIUM 125 MG CAP.SPRINK PO SCH ×2 (08:32→16:48)
[2021-02-19] MEDS: LOSARTAN POTASSIUM 25 MG TABLET PO SCH (08:32)
[2021-02-19] MEDS: METFORMIN 500 MG TABLET PO SCH ×2 (08:32→16:48)
[2021-02-19] MEDS: glipiZIDE 10 MG TABLET PO SCH (08:33)
--- NOTE | 2021-02-19 12:15 | NUR ---
Assumed Care: Received pt. eating in the room. Pt. is responsive to staffs, no sign of distress and no agitation noted.
[2021-02-19] MEDS: DIVALPROEX SODIUM 250 MG TABLET.DR PO SCH (12:58)
[2021-02-19 16:00] VITALS: BP 129/66
--- NOTE | 2021-02-19 19:30 | NUR ---
GPS RN OPENING NOTE RECIEVED PATIENT IN BED WITH EYES CLOSED AROUSABLE TO TOUCH. ORIENTED X1. DISORGANIZED THOUGH PROCESS, SUSPICIOUS. DENIES PAIN, PT SOMEWHAT LETHARGIC. IN NO APPARENT PHYSICAL DISTRESS. REATHING EVEN AND UNLABORED WITH EQUAL RISE AND FALL OF THE CHEST. BED DOWN LOCKED SRX2 PT AMBULATORY WITH WALKER AND ASSISTANCE. BED ALARM ACTIVE. WILL CONT TO MONITOR EVERY 15 MINS WITH HELP OF STAFF AND MONITOR MOOD AND BEHAVIOR.
[2021-02-19 20:37] VITALS: BP 120/69
[2021-02-19] MEDS: ATORVASTATIN 10 MG TABLET PO SCH (22:00)
[2021-02-19] MEDS: BENZTROPINE MESYLATE (1 MG) 1 MG TABLET PO SCH (22:00)
[2021-02-19] MEDS: HALOPERIDOL 5 MG TABLET PO SCH (22:00)
[2021-02-19] MEDS: HALOPERIDOL LACTATE INJ 5 MG/ML VIAL IM PRN (22:44)
--- NOTE | 2021-02-19 22:44 | NUR ---
PT REFUSED MEDICATIONS SCHEDULED INCLUDING HALDOL PO. PT GIVEN IM INJECTIN OF HALDOL ORDERED TO RIGHT GLUTEAL IM INJECTION. Addendum: 02/20/21 at 0307 by BAYLEE PADILLA RN 2250 PT. IS RIESED & FOR EACH HALDOL REFUSAL ORDERS TO GIVE IM. PATIENT AGITATED DURING ADMINISTRATION BUT CALM DOWN WHEN LEFT ALONE. POST ADMINISTRATION.
[2021-02-20 08:00] VITALS: BP 120/76
[2021-02-20] MEDS: GLUCERNA SHAKE 237 ML CAN PO SCH ×2 (08:00→17:00)
[2021-02-20] MEDS: LOSARTAN POTASSIUM 25 MG TABLET PO SCH (08:23)
[2021-02-20] MEDS: DIVALPROEX SODIUM 125 MG CAP.SPRINK PO SCH ×2 (08:24→17:00)
[2021-02-20] MEDS: glipiZIDE 10 MG TABLET PO SCH (08:24)
[2021-02-20] MEDS: METFORMIN 500 MG TABLET PO SCH ×2 (08:24→17:00)
[2021-02-20] MEDS: DIVALPROEX SODIUM 250 MG TABLET.DR PO SCH (12:30)
[2021-02-20 16:00] VITALS: BP 137/77
[2021-02-20 20:00] VITALS: BP 126/68
[2021-02-20] MEDS: HALOPERIDOL LACTATE INJ 5 MG/ML VIAL IM PRN (21:07)
[2021-02-20] MEDS: ATORVASTATIN 10 MG TABLET PO SCH (22:00)
[2021-02-20] MEDS: HALOPERIDOL 5 MG TABLET PO SCH (22:00)
[2021-02-20] MEDS: BENZTROPINE MESYLATE (1 MG) 1 MG TABLET PO SCH (22:00)
--- NOTE | 2021-02-20 22:11 | NUR ---
GPS RN NOTE: PATIENT REFUSED HALDOL PO SCHEDULED. PATIENT IS RIESED, HALDOL 10MG IM GIVEN ORDERED WHEN PATIENT REFUSES PO HALDOL. PATIENT HAS NO S/S OF DISTRESS. CURRENTLY IN MARTIR CHAIR YELLING AND CURSING. WILL CONTINUE TO MONITOR.
--- NOTE | 2021-02-21 06:48 | NUR ---
GPS RN CLOSING NOTES: PATIENT LAYING ON BED, AWAKE, A/O X1, SLEPT 4HOURS THIS SHIFT. NO S/S OF DISTRESS. NO C/O PAIN. RESPIRATION EVEN AND UNLABORED WITH EQUAL RISE AND FALL OF THE CHEST ON ROOM AIR. OFFERED FLUID TOLERATED. ALL PATIENT CARE NEEDS HAVE BEEN MET ANTICIPATED. WILL CONTINUE TO MONITOR FOR SAFETY, MOOD AND BEHAVIOR AND ENDORSE TO AM SHIFT.
[2021-02-21 08:00] VITALS: BP 136/86
[2021-02-21] MEDS: GLUCERNA SHAKE 237 ML CAN PO SCH ×2 (08:47→17:21)
[2021-02-21] MEDS: glipiZIDE 10 MG TABLET PO SCH (08:48)
[2021-02-21] MEDS: LOSARTAN POTASSIUM 25 MG TABLET PO SCH (08:48)
[2021-02-21] MEDS: METFORMIN 500 MG TABLET PO SCH ×2 (08:48→17:00)
[2021-02-21] MEDS: DIVALPROEX SODIUM 125 MG CAP.SPRINK PO SCH ×2 (08:48→17:00)
--- NOTE | 2021-02-21 08:49 | NUR ---
GPS RN NOTE PATIENT I HAVING AGGRESSIVE BEHAVIOR TOWARDS EVERYBODY, PATIENT REFUSING ALL THE MEDICATIONS, EDUCATED RISK VS BENEFITS, PATIENTS CONTINUED AGGRESSIVELY TO REFUSE MEDICATIONS.
[2021-02-21] MEDS ORDERED: OLANZAPINE 10 MG VIAL IM STA (12:55)
[2021-02-21] MEDS ORDERED: LORAZEPAM INJ 2 MG/ML VIAL IM STA (12:55)
[2021-02-21] MEDS: DIVALPROEX SODIUM 250 MG TABLET.DR PO SCH (13:00)
[2021-02-21 16:00] VITALS: BP 107/54
[2021-02-21 20:00] VITALS: BP 128/62
[2021-02-21] MEDS: ATORVASTATIN 10 MG TABLET PO SCH (22:00)
[2021-02-21] MEDS: HALOPERIDOL 5 MG TABLET PO SCH (22:00)
[2021-02-21] MEDS: BENZTROPINE MESYLATE (1 MG) 1 MG TABLET PO SCH (22:00)
--- NOTE | 2021-02-21 22:36 | NUR ---
GPS RN NOTES: PATIENT REFUSED 2200 HALDOL, COGENTIN AND LIPITOR PO MEDICATIONS ORDERED. EDUCATION PROVIDED ON THE IMPORTANCE OF MEDICATION REGIMEN. WILL CONTINUE TO MONITOR.
--- NOTE | 2021-02-22 06:39 | NUR ---
GPS RN CLOSING NOTES: PATIENT SITTING ON BED, A/O X1. SLEPT 4.5HOURS THIS SHIFT. NO S/S OF DISTRESS. DENIES ANY PAIN. CALM. RESPIRATION EVEN AND UNLABORED WITH EQUAL RISE AND FALL OF THE CHEST ON ROOM AIR. ALL PATIENT CARE NEEDS HAVE BEEN MET ANTICIPATED. WILL CONTINUE TO MONITOR FOR SAFETY, MOOD AND BEHAVIOR AND ENDORSE TO AM SHIFT.
[2021-02-22 08:00] VITALS: BP 150/82
[2021-02-22] MEDS: GLUCERNA SHAKE 237 ML CAN PO SCH ×2 (08:24→17:00)
[2021-02-22] MEDS: glipiZIDE 10 MG TABLET PO SCH (08:44)
[2021-02-22] MEDS: DIVALPROEX SODIUM 125 MG CAP.SPRINK PO SCH ×2 (08:44→16:50)
[2021-02-22] MEDS: METFORMIN 500 MG TABLET PO SCH ×2 (08:44→16:51)
[2021-02-22] MEDS: LOSARTAN POTASSIUM 25 MG TABLET PO SCH (08:44)
[2021-02-22] MEDS: DIVALPROEX SODIUM 250 MG TABLET.DR PO SCH (13:00)
[2021-02-22] MEDS ORDERED: clonazePAM 0.5 MG TABLET PO PRN (14:00)
[2021-02-22 16:00] VITALS: BP 150/90
--- NOTE | 2021-02-22 18:30 | NUR ---
loud and yells out from time to time,but mostly very cooperative,and non compliant with meds.
[2021-02-22 20:00] VITALS: BP 166/72
[2021-02-22] MEDS: BENZTROPINE MESYLATE (1 MG) 1 MG TABLET PO SCH (22:00)
[2021-02-22] MEDS: ATORVASTATIN 10 MG TABLET PO SCH (22:00)
[2021-02-22] MEDS: OLANZAPINE ZYDIS 5 MG TAB.RAPDIS PO SCH (22:00)
--- NOTE | 2021-02-22 22:54 | NUR ---
GPS RN NOTES: PATIENT REFUSED 2200 ZYPREXA, COGENTIN AND LIPITOR PO MEDICATIONS ORDERED. PATIENT IS NO LONGER RIESED, NO IM COVERAGE. EDUCATION PROVIDED ON THE IMPORTANCE OF MEDICATION REGIMEN. WILL CONTINUE TO MONITOR AND ENDORSE TO AM SHIFT.
--- NOTE | 2021-02-23 06:43 | NUR ---
GPS RN CLOSING NOTES: PATIENT SLEEPING COMFORTABLY ON BED. SLEPT 5HOURS THIS SHIFT. NO S/S OF DISTRESS. RESPIRATION EVEN AND UNLABORED WITH EQUAL RISE AND FALL OF THE CHEST ON ROOM AIR. ALL PATIENT CARE NEEDS HAVE BEEN MET ANTICIPATED. BED IN LOWEST POSITION AND LOCKED WITH SIDE RAILS UP X2. WILL CONTINUE TO MONITOR FOR SAFETY, MOOD AND BEHAVIOR AND ENDORSE TO AM SHIFT.
[2021-02-23 08:00] VITALS: BP 133/75
[2021-02-23] MEDS: GLUCERNA SHAKE 237 ML CAN PO SCH ×2 (08:00→17:00)
[2021-02-23] MEDS: LOSARTAN POTASSIUM 25 MG TABLET PO SCH (08:58)
[2021-02-23] MEDS: METFORMIN 500 MG TABLET PO SCH ×2 (09:00→17:00)
[2021-02-23] MEDS: glipiZIDE 10 MG TABLET PO SCH (09:00)
[2021-02-23] MEDS: OLANZAPINE ZYDIS 5 MG TAB.RAPDIS PO SCH ×2 (09:00→21:25)
[2021-02-23] MEDS: DIVALPROEX SODIUM 125 MG CAP.SPRINK PO SCH ×2 (09:00→17:00)
--- NOTE | 2021-02-23 09:49 | NUR ---
Family Contact: SW called the pts , Romel Jones ([phone]), and left a voicemail stating that the SW would like to discuss the pts discharge plan.
[2021-02-23] MEDS: DIVALPROEX SODIUM 250 MG TABLET.DR PO SCH (12:18)
--- NOTE | 2021-02-23 13:49 | NUR ---
Family Contact: SW called the pts , Romel Jones ([phone]), and left a voicemail stating that the SW would like to discuss the pts discharge plan.
--- NOTE | 2021-02-23 14:00 | NUR ---
Family Contact: Pts , Romel Jones ([phone]), called the SW back and stated that he will come and brass pickler the pt around 11am.
[2021-02-23 16:00] VITALS: BP 115/69
--- NOTE | 2021-02-23 16:25 | NUR ---
NOISY AND OUT AT DESK OFTEN LOOKING FOR THINGS,BUT QUIETER THAN USUAL.
[2021-02-23] MEDS: BLOOD SUGAR DIAGNOSTIC 1 EACH STRIP IN SCH ×2 (17:13→21:25)
--- NOTE | 2021-02-23 17:13 | NUR ---
REFFUSED ACCU-CHECK AT THIS TIME.
--- NOTE | 2021-02-23 17:15 | NUR ---
PT. CONSTANTLY ASKING FOR JUICE AND SNACKS.
--- NOTE | 2021-02-23 19:30 | NUR ---
GPS RN NOTE, RECEIVED PATIENT AWAKE AND IN BED, NO S/S OR COMPLAINTS OF PAIN AT THIS TIME. PATIENT IS DISPLAYING NO S/S OF APPARENT DISTRESS AT THIS TIME. PATIENT BREATHING IS UNLABORED WITH EQUAL RISE AND FALL OF THE CHEST. PATIENT IS ALERT AND ORIENTED X 1-2 ON ROOM AIR WITH A SPO2 94%. PATIENT IS REFUSING MEDICATIONS, CONFUSED, PARANOID, DISORGANIZED, COOPERATIVE, AND NEEDS REDIRECTION. PATIENT DENIES SUICIDAL AND HOMICIDAL IDEATIONS AT THIS TIME. PATIENT ASSISTED WITH TURNING AND REPOSITIONING Q2HR AND PRN FOR COMFORT AND CIRCULATION. PATIENT HAS NO NEEDS AT THIS TIME. PATIENT EDUCATED ON THE USE OF THE CALL KENNEDY. PATIENT BED SIDE RAILS UP X 2 FOR SAFETY. PATIENT BED IS LOCKED, LOW, WITH BED ALARM ON. WILL CONTINUE TO MONITOR THIS PATIENT Q15 MINUTES WITH THE HELP OF STAFF TO MAINTAIN SAFETY.
[2021-02-23 19:44] VITALS: BP 130/75
[2021-02-23] MEDS: ATORVASTATIN 10 MG TABLET PO SCH (21:25)
[2021-02-23] MEDS: BENZTROPINE MESYLATE (1 MG) 1 MG TABLET PO SCH (21:25)
--- NOTE | 2021-02-23 21:25 | NUR ---
GPS RN NOTE, PATIENT REFUSED ACCU CHECK, COGENTIN 0.5MG PO HS, LIPITOR 20MG PO HS, AND ZYPREXA ZYDIS 5MG PO Q2200. OFFERED AFOREMENTIONED MEDICATION AND ACCU CHECK THREE TIMES AND STILL PATIENT REFUSED STATING, " NO I DON'T TAKE MEDICATION, I NEVER HAVE TAKEN MEDICATION, AND I NEVER WILL TAKE MEDICATION ". EDUCATED ON THE RISKS AND BENEFITS OF TAKING AND REFUSING ACCU CHECK'S, COGENTIN, LIPITOR, AND ZYPREXA ZYDIS. WILL CONTINUE TO MONITOR THIS PATIENT WITH THE HELP OF STAFF.
[2021-02-24] MEDS: BLOOD SUGAR DIAGNOSTIC 1 EACH STRIP IN SCH ×4 (07:30→22:00)
[2021-02-24 08:00] VITALS: BP 136/75
[2021-02-24] MEDS: GLUCERNA SHAKE 237 ML CAN PO SCH ×2 (08:23→16:37)
[2021-02-24] MEDS: METFORMIN 500 MG TABLET PO SCH ×2 (09:00→16:37)
[2021-02-24] MEDS: glipiZIDE 10 MG TABLET PO SCH (09:00)
[2021-02-24] MEDS: OLANZAPINE ZYDIS 5 MG TAB.RAPDIS PO SCH ×2 (09:00→22:00)
[2021-02-24] MEDS: DIVALPROEX SODIUM 125 MG CAP.SPRINK PO SCH ×3 (09:00→16:37)
[2021-02-24] MEDS: LOSARTAN POTASSIUM 25 MG TABLET PO SCH (09:00)
--- NOTE | 2021-02-24 09:25 | NUR ---
GPS/RN-NOTES PATIENT REFUSED ALL 0900AM MEDICATIONS INCLUDING ACCU CHECK. 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
--- NOTE | 2021-02-24 12:57 | NUR ---
GPS/RN-NOTES REFUSED DEPAKOTE SPRINKLE 500MG P.O . OFFERED X3.
--- NOTE | 2021-02-24 13:05 | NUR ---
GPS/RN-NOTES PATIENT STRONGLY REFUSED TO LEAVE THE UNIT . STATED" I OWN THIS PLACE AND I'M NOT GOING ANYMORE".JACQUIE HER PARTNER DID TALK TO THE PATIENT BUT PATIENT STILL REFUSED.DR. MCMILLAN MADE AWARE BY THE CHARGE NURSE AND CANCEL THE DISCHARGE.
--- NOTE | 2021-02-24 13:09 | NUR ---
Individual Intervention: Pt refused to be discharged back and home stated that she wanted to see her partner, Romel Jones ([phone]), before she would leave the hospital. Pts partner came up to the unit and the pt began shouting that the hospital was her home and that this is [facility] and pt kept refusing to leave. Security was called and the pt still refused to leave. Md was informed and the discharge was cancelled.
--- NOTE | 2021-02-24 14:25 | NUR ---
Probable Cause Hearing: Pts [id number] hold was upheld for grave disability. Addendum: 02/24/21 at 1438 by HINA SALAZAR [id number]
--- NOTE | 2021-02-24 14:37 | NUR ---
SNF Referral: HINA faxed a referral to [facility] with attn to Aba to the fax number: [phone].
[2021-02-24 16:00] VITALS: BP 157/86
--- NOTE | 2021-02-24 16:38 | NUR ---
GPS/RN-NOTES PATIENT STILL REFUSING MEDICATIONS INCLUDING ACCU CHECK DESPITE ENCOURAGEMENT.OFFERED X3
[2021-02-24 19:46] VITALS: BP 136/75
[2021-02-24 19:50] VITALS: BP 136/75
--- NOTE | 2021-02-24 20:31 | NUR ---
RN NOTE PATIENT KEPT COMING BACK & FORTH TO NURSES STATION & STATED," I WANT TO GO HOME RIGHT NOW, I AM VERY SICK, CALL 911." PATIENT IS AMBULATING IN THE HALLWAY WITH WALKER, STEADY. NO ACUTE DISTRESS NOTED AT THIS TIME. PT. BECOMES LOUD WHEN REDIRECTED BY NURSE & CHARGE NURSE. PT. KEPT INSISTING TO GO HOME. OFFERED SNACK & JUICE/WATER BUT PT. REFUSED. OFFERED MEDICINE TO CALM DOWN, PT. CONTINUED TO REFUSE EVERYTHING WAS OFFERED TO HER, GAVE SPACE TO THE PATIENT TO CALM DOWN, PT. WALKED AWAY FROM NURSES STATION, SAT DOWN IN THE CHAIR, CALM AT THIS TIME. WILL CONTINUE TO MONITOR THE PATIENT FOR SAFETY, MOOD & BEHAVIOR.
[2021-02-24] MEDS: BENZTROPINE MESYLATE (1 MG) 1 MG TABLET PO SCH (22:00)
[2021-02-24] MEDS: ATORVASTATIN 10 MG TABLET PO SCH (22:00)
--- NOTE | 2021-02-24 22:01 | NUR ---
GPS/RN NOTES: MEDICATION REFUSAL PATIENT REFUSED ALL 2200 MEDICINES FOR TONIGHT. PT. ALSO REFUSED ACCU CHECK AT 2200, STATED," GET LOST, YOU ARE HARASSING ME." EDUCATED PATIENT REGARDING MEDICATION COMPLIANCE BUT PATIENT CONTINUED TO REFUSE, BECOMES MORE AGITATED & STARTS YELLING WHEN REDIRECTED & EXPLAINED, PT. KEEPS REPEATING," YOU BETRAYED ME, I DON'T LIKE YOU ANY MORE." CHARGE NURSE MADE AWARE.
--- NOTE | 2021-02-25 02:43 | NUR ---
RN NOTE: PATIENT IS AWAKE, RESTING IN A MARTIR CHAIR, UNABLE TO SLEEP, WATCHING TV, REFUSED TO GO TO BED. OFFERED RESTORIL MULTIPLE TIMES BUT PATIENT STRONGLY REFUSES TO TAKE ANY MEDICINE & STATED," ARE YOU STUPID, I DON'T TAKE ANY MEDICINE, I NEED TO GO HOME. YOU ILL BE BUSTED IF YOU DON'T LISTEN TO ME." CONTINUING TO MONITOR FOR ANY BUDDY.
--- NOTE | 2021-02-25 05:45 | NUR ---
RN NOTE PATIENT URINATED IN HER PAJAMA & AGREED TO CHANGE HER WET PAJAMA, THEN PATIENT WANTED TO GO TO BED, OFFERED HER SNACK & TOLERATED WELL. PT. LAYING IN BED, AWAKE, WILL CONTINUE TO MONITOR.
--- NOTE | 2021-02-25 06:32 | NUR ---
RN NOTE PATIENT IS SLEEPING AT THIS TIME.
[2021-02-25] MEDS: BLOOD SUGAR DIAGNOSTIC 1 EACH STRIP IN SCH ×4 (07:30→22:00)
--- NOTE | 2021-02-25 07:45 | NUR ---
GPS/RN-NOTES PATIENT REFUSED ACCU CHECK DESPITE EXPLANATIONS RISK AND BENEFITS.OFFER X3.
[2021-02-25 08:00] VITALS: BP 135/87
[2021-02-25] MEDS: GLUCERNA SHAKE 237 ML CAN PO SCH ×2 (08:35→17:24)
[2021-02-25] MEDS: LOSARTAN POTASSIUM 25 MG TABLET PO SCH (08:51)
[2021-02-25] MEDS: glipiZIDE 10 MG TABLET PO SCH (08:52)
[2021-02-25] MEDS: DIVALPROEX SODIUM 125 MG CAP.SPRINK PO SCH ×3 (08:52→17:00)
[2021-02-25] MEDS: METFORMIN 500 MG TABLET PO SCH ×2 (08:52→17:00)
[2021-02-25] MEDS: OLANZAPINE ZYDIS 5 MG TAB.RAPDIS PO SCH ×2 (08:52→22:00)
--- NOTE | 2021-02-25 08:52 | NUR ---
GPS/RN-NOTES PATIENT REFUSED ALL 0900AM MEDICATIONS, ENCOURAGED AND OFFERED X3.
--- NOTE | 2021-02-25 13:17 | NUR ---
GPS/RN-NOTES REFUSED ACCU CHECK AND DEPAKOTE SPRINKLE 500MG P.O . OFFERED X3.
[2021-02-25 16:00] VITALS: BP 129/75
--- NOTE | 2021-02-25 17:24 | NUR ---
GPS/RN-NOTES PATIENT REFUSED ACCU CHECK AND ALL 1700 MEDICATIONS DESPITE EXPLANATIONS RISK AND BENEFITS.OFFER X3.
--- NOTE | 2021-02-25 18:30 | NUR ---
Dr. Cody made aware that the schedule for Riese Hearing on Sunday02/28/21 @ 1200 noon.
[2021-02-25 20:08] VITALS: BP 145/73
[2021-02-25] MEDS: BENZTROPINE MESYLATE (1 MG) 1 MG TABLET PO SCH (22:00)
[2021-02-25] MEDS: ATORVASTATIN 10 MG TABLET PO SCH (22:00)
--- NOTE | 2021-02-25 22:08 | NUR ---
RN notes Pt refused accucheck and all meds due at 2200. Offered multiple times. Explained risks and benefits. Pt keep refusing. Charge nurse is aware and informed. Will continue to monitor.
[2021-02-26] MEDS: BLOOD SUGAR DIAGNOSTIC 1 EACH STRIP IN SCH ×4 (07:30→22:00)
[2021-02-26 08:00] VITALS: BP 134/61
[2021-02-26] MEDS: GLUCERNA SHAKE 237 ML CAN PO SCH ×2 (08:14→17:00)
[2021-02-26] MEDS: METFORMIN 500 MG TABLET PO SCH ×2 (09:00→17:00)
[2021-02-26] MEDS: LOSARTAN POTASSIUM 25 MG TABLET PO SCH (09:00)
[2021-02-26] MEDS: glipiZIDE 10 MG TABLET PO SCH (09:00)
[2021-02-26] MEDS: OLANZAPINE ZYDIS 5 MG TAB.RAPDIS PO SCH ×2 (09:00→22:00)
[2021-02-26] MEDS: DIVALPROEX SODIUM 125 MG CAP.SPRINK PO SCH ×3 (09:00→17:00)
--- NOTE | 2021-02-26 09:09 | NUR ---
GPS/RN-NOTES DR. MANZO IN THE UNIT AND MADE AWARE OF PATIENT NON COMPLIANCE WITH MEDICATIONS.
--- NOTE | 2021-02-26 11:55 | NUR ---
GPS/RN-NOTES PATIENT REFUSED ACCU CHECK, STATED" I'M NOT DIABETIC NO ".OFFERED X3.
[2021-02-26] MEDS ORDERED: OLANZAPINE 10 MG VIAL IM STA (15:29)
[2021-02-26] MEDS ORDERED: LORAZEPAM INJ 2 MG/ML VIAL IM STA (15:29)
--- NOTE | 2021-02-26 15:34 | NUR ---
GPS/RN-NOTES NOTED PATIENT DISROBING ,SCREAMING AND YELLING USING FOUL LANGUAGES AT STAFF AND PEERS. DR. WHITEHEAD IN THE UNIT AND GAVE VERBAL ORDER OF ZYPREXA 10MG IM STAT AND ATIVAN 2MG IM STAT. NOTED AND CARRIED OUT. Addendum: 02/26/21 at 1547 by WILY NARANJO RN RN-CO: PT IS NON REDIRECTABLE, AND VERY DISRUPTIVE TO UNIT.
[2021-02-26 16:00] VITALS: BP 137/70
--- NOTE | 2021-02-26 18:56 | NUR ---
GPS/RN-NOTES PATIENT UP IN THE MARTIR-CHAIR SLEEPING WITH BREATHING EVEN AND NONLABORED EASILY AROUSE, NO ACUTE DISTRESS NOTED. WILL ENDORSE TO INCOMING NURSE TO CONTINUE MONITORING AND CARE.
[2021-02-26 20:00] VITALS: BP 127/64
[2021-02-26 20:07] VITALS: BP 127/64
[2021-02-26] MEDS: ATORVASTATIN 10 MG TABLET PO SCH (22:00)
[2021-02-26] MEDS: BENZTROPINE MESYLATE (1 MG) 1 MG TABLET PO SCH (22:00)
--- NOTE | 2021-02-26 22:14 | NUR ---
RN NOTES: MEDICATION REFUSAL PATIENT REFUSED ALL 2200 MEDICINES FOR TONIGHT. PT. ALSO REFUSED ACCU CHECK AT 2200, EDUCATED PATIENT REGARDING MEDICATION COMPLIANCE BUT PATIENT CONTINUED TO REFUSE, BECOMES MORE AGITATED & STARTS YELLING WHEN REDIRECTED & EXPLAINED, CHARGE NURSE MADE AWARE.
[2021-02-27] MEDS: BLOOD SUGAR DIAGNOSTIC 1 EACH STRIP IN SCH ×4 (07:22→21:53)
[2021-02-27 08:00] VITALS: BP 135/71
[2021-02-27] MEDS: GLUCERNA SHAKE 237 ML CAN PO SCH ×2 (08:00→17:21)
[2021-02-27] MEDS: DIVALPROEX SODIUM 125 MG CAP.SPRINK PO SCH ×3 (09:00→17:00)
[2021-02-27] MEDS: OLANZAPINE ZYDIS 5 MG TAB.RAPDIS PO SCH ×2 (09:00→21:53)
[2021-02-27] MEDS: METFORMIN 500 MG TABLET PO SCH ×2 (09:00→17:00)
[2021-02-27] MEDS: LOSARTAN POTASSIUM 25 MG TABLET PO SCH (09:00)
[2021-02-27] MEDS: glipiZIDE 10 MG TABLET PO SCH (09:00)
--- NOTE | 2021-02-27 10:40 | NUR ---
RN NOTES PATIENT REFUSED ACCUCHECKS AND ALL MEDICATIONS THIS MORNING DESPITE EXPLAINING RISKS AND BENEFITS. DR GODINEZ CAME TO UNIT AND MADE AWARE. WILL CONTINUE TO MONITOR.
[2021-02-27 16:00] VITALS: BP 149/78
[2021-02-27 20:30] VITALS: BP 134/72
[2021-02-27] MEDS: ATORVASTATIN 10 MG TABLET PO SCH (21:53)
[2021-02-27] MEDS: BENZTROPINE MESYLATE (1 MG) 1 MG TABLET PO SCH (21:53)
--- NOTE | 2021-02-27 21:55 | NUR ---
RN NOTES: MEDICATION REFUSAL PATIENT REFUSED ZYPREXA PO, LIPITOR AND COGENTIN SCHEDULED FOR TONIGHT. REFUSED ACCU CHECK, EDUCATED PATIENT REGARDING MEDICATION COMPLIANCE BUT PATIENT CONTINUED TO REFUSE. PATIENT STATED "I DON'T TAKE ANY MEDICINE & I DON'T NEED IT". PT. BEHAVIOR VERY UNCOOPERATIVE, EASILY AGITATED , WILL CONTINUITY WITH CARE.
--- NOTE | 2021-02-28 06:09 | NUR ---
RN NOTES: REFUSED SKIN ASSESSMENT PATIENT REFUSED WEEKLY SKIN REASSESSMENT AND PHOTS TAKEN , ENCOURGED ,A DESPITE OF EXPLANATIONS, VERY SUSPICIOUS, PARANOID, DELUSIONAL & UNCOOPERATIVE. WILL CONTINUE WITH CARE.
[2021-02-28] MEDS: BLOOD SUGAR DIAGNOSTIC 1 EACH STRIP IN SCH ×4 (07:30→21:29)
--- NOTE | 2021-02-28 07:48 | NUR ---
RN NOTE: ACCUCHECK REFUSAL PT REFUSED AM ACCUCHECK. "I AM NOT DIABETIC. I DON'T NEED YOUR SERVICES. THANK YOU VERY MUCH". ATTEMPTED TO EDUCATE PT RE IMPORTANCE OF BLOOD SUGAR MONITORING. PT CON'T TO REFUSE X 3. PT IS VERBALL AGGRESSIVE, PARANOID AND DELUSIONAL.
[2021-02-28 08:00] VITALS: BP 126/73
[2021-02-28] MEDS: GLUCERNA SHAKE 237 ML CAN PO SCH ×2 (08:00→16:33)
[2021-02-28] MEDS: LOSARTAN POTASSIUM 25 MG TABLET PO SCH (08:04)
[2021-02-28] MEDS: OLANZAPINE ZYDIS 5 MG TAB.RAPDIS PO SCH (08:05)
[2021-02-28] MEDS: glipiZIDE 10 MG TABLET PO SCH (08:05)
[2021-02-28] MEDS: METFORMIN 500 MG TABLET PO SCH ×2 (08:05→16:33)
[2021-02-28] MEDS: DIVALPROEX SODIUM 125 MG CAP.SPRINK PO SCH ×3 (08:05→16:33)
--- NOTE | 2021-02-28 08:06 | NUR ---
RN NOTE: MEDICATION REFUSAL PT REFUSED ALL AM MEDICATIONS. "I DON'T TAKE MEDICATIONS BIMBO. I AM WITH ONE BOY. I AM NOT A LESBIAN". ATTEMPTED TO EDUCATE PT RE IMPORTANCE OF MEDICATION COMPLIANCE. PT CONT'D TO REFUSE X 3. WILL CONT TO EDUCATE PT AND MONITOR PT.
--- NOTE | 2021-02-28 12:09 | NUR ---
RN NOTE: ACCUCHECK REFUSAL. PT REFUSED 1200 ACCUCHECK. ATTEMPTED TO EDUCATE PT RE IMPORTANCE OF BLOOD SUGAR MONITORING. PT CONT'D TO REFUSE X 3. WILL CONT TO MONITOR FOR BEHAVIOR AND SAFETY.
--- NOTE | 2021-02-28 12:32 | NUR ---
RN NOTE: MEDICATION REFUSAL PT REFUSED 1200 DEPAKOTE. ATTEMPTED TO EDUCATE PT RE IMPORTANCE OF MEDICATION COMPLIANCE. PT CONT'D TO REFUSE X 3. WILL CONT TO MONITOR FOR SAFETY AND BEHAVIOR. PT TO BE RIESED.
[2021-02-28] MEDS: OLANZAPINE 10 MG TABLET PO SCH (16:33)
[2021-02-28] MEDS: OLANZAPINE 10 MG VIAL IM PRN (16:40)
--- NOTE | 2021-02-28 16:40 | NUR ---
RN NOTE: MEDICATION REFUSAL PT REFUSED ALL 1700 PO MEDICATIONS. PT IS NOW REISED. ATTEMPTED TO EDUCATE PT RE REISE PROCESS. PT CONT'D TO REFUSE "I AM NO A PATIENT YOU IDIOT. THE BABY IS ". IM ZYPREXA 10 MG ADMINISTERED TO RIGHT GLUTEUS PAPI. PAT STANLEY WELL.
[2021-02-28 16:43] VITALS: BP 129/83
[2021-02-28] MEDS ORDERED: OLANZAPINE 10 MG VIAL IM SCH (17:00)
[2021-02-28 20:00] VITALS: BP 132/77
[2021-02-28] MEDS: ATORVASTATIN 10 MG TABLET PO SCH (21:29)
[2021-02-28] MEDS: BENZTROPINE MESYLATE (1 MG) 1 MG TABLET PO SCH (21:29)
--- NOTE | 2021-02-28 21:51 | NUR ---
GPS-RN NOTES: MEDICATION REFUSAL PATIENT REFUSED TO TAKE SCHEDULED COGENTIN AND LIPITOR DOSE FOR TONIGHT. EDUCATED PATIENT REGARDING MEDICATION COMPLIANCE. PATIENT CONTINUED TO REFUSE AND PATIENT STATED, "NO, I DON'T TAKE ANY MEDICATION". WILL CONTINUE TO MONITOR FOR PATIENT'S SAFETY. Addendum: 03/01/21 at 0220 by JOSIE VEGA RN PATIENT REFUSED TO HAVE BLOOD SUGAR CHECK. OFFERED X3. PT STRONGLY REFUSED.
[2021-03-01] MEDS: BLOOD SUGAR DIAGNOSTIC 1 EACH STRIP IN SCH ×2 (07:30→12:00)
[2021-03-01] MEDS: GLUCERNA SHAKE 237 ML CAN PO SCH (07:46)
[2021-03-01 08:00] VITALS: BP 143/84
[2021-03-01 08:08] VITALS: BP 143/84
[2021-03-01] MEDS: LOSARTAN POTASSIUM 25 MG TABLET PO SCH (08:08)
[2021-03-01] MEDS: DIVALPROEX SODIUM 125 MG CAP.SPRINK PO SCH ×2 (08:09→12:14)
[2021-03-01] MEDS: OLANZAPINE 10 MG TABLET PO SCH (08:09)
[2021-03-01] MEDS: glipiZIDE 10 MG TABLET PO SCH (08:09)
[2021-03-01] MEDS: METFORMIN 500 MG TABLET PO SCH (08:09)
--- NOTE | 2021-03-01 08:09 | NUR ---
RN NOTE: MEDICATION REFUSAL PT REFUSED ALL AM MEDICATIONS "I AM NOT A PATIENT. YOU BIMBO. YOU IDIOT". ATTEMPTED TO EDUCATE PT RE IMPORTANCE OF MEDICATION COMPLIANCE. PT CONT'D TO REFUSE X 3. WILL FOLLOW UP WITH IM BACK UP
[2021-03-01] MEDS: OLANZAPINE 10 MG VIAL IM PRN (09:23)
--- NOTE | 2021-03-01 09:23 | NUR ---
RN NOTE: MEDICATION REFUSAL PT REFUSED AM MEDICATIONS. ZYPREXA 10 MG IM ADMINISTERED TO LEFT DELTOID. PT STANLEY WELL.
--- NOTE | 2021-03-01 11:30 | NUR ---
SNF Contact: KAVYA ([phone]) from [facility] contacted the SW and stated that the pt was not accepted to their facility.
--- NOTE | 2021-03-01 11:35 | NUR ---
SNF Contact: Nolberto ([phone]) from [facility] contacted the and stated that they do not have a female bed for today.
--- NOTE | 2021-03-01 11:40 | NUR ---
SNF Contact: Jr ([phone]) from [facility] contacted the SW and stated that the pt was accepted to their facility.
--- NOTE | 2021-03-01 11:42 | NUR ---
Family Contact: SW called the pts , Romel Jones ([phone]), and left a voicemail that informed him that the pt was accepted to [facility] which is located in [place]. SW stated that the pt was difficult to get accepted to snfs and that she will need to stabilize before returning home with him. HINA stated that the pt will be transferred today.
--- NOTE | 2021-03-01 12:37 | NUR ---
Discharge Note: Pt will be discharged to [facility] located at [address] [place] [id number]; ([phone]) to 12A. Pt will be transported via [facility] (Trip #[id number]) at 2:15PM. SW called the pts partner, Romel ([phone]), and informed him of the discharge. Upon discharge, the pt appears to be in a dysphoric mood and presented with a congruent affect. Pt appears to be alert and oriented x3 (time, place, self). Pt denies both suicidal and homicidal ideation as well as auditory and visual hallucinations. Pt appears to be ambulatory with an unsteady gait and uses a walker for assistance. Pt appears to be well groomed and appropriately dressed. Pt will continue to be under the care of psychiatrist, Dr. Harvey, located at [address] [place] [address]; . Pt will be under the care of electrician station assistant, Dr. Madrigal, located at [address] [place] [address]; . The choice of vendor form and multidisciplinary exit care form were done, printed, signed, and given to the patient.
--- NOTE | 2021-03-01 12:40 | NUR ---
Family Contact: SW called the pts , Romel Jones ([phone]), and provided him with the contact information for [facility].
--- NOTE | 2021-03-01 13:24 | NUR ---
RN NOTE: REPORT CALLED TO AARON JOHNSTON AT [facility]. AT [phone].
--- NOTE | 2021-03-01 14:40 | NUR ---
MEDICAL REPRESENTATIVE NOTE: 65 YEAR OLD FEMALE DISCHARGED TO [facility] IN STABLE CONDITION. PATIENT DENIES SI/HI AND INSTRUCTED TO GO TO THE CLOSEST ER IF DEVELOPING SI/HI. BEHAVIOR IMPROVED. PSYCHIATRIC TREATMENT PLANS MET, MEDICAL TREATMENT PLANS DEFERRED FOR CONTINUAL MONITORIND. EDUCATED PT ABOUT THE AFTER CARE/EXIT-CARE AND COPY PROVIDED. RETURNED PERSONAL BELONGINGS TO PATIENT. MEDICATIONS DECONCILED WITH DR. WHITEHEAD AND DR. TOVAR. REPORT GIVEN TO AARON RN FOR CONTINUITY OF CARE. PATIENT UNABLE TO SIGN DISCHARGE PAPER WORK DUE TO CONFUSION. PT REFUSED SKIN ASSESSMENT ON ADMIT AND DISCHARGE. PATIENT ID BAND REMOVED. PT LEFT THE UNIT AT 1440 VIA GURNEY WITH EMS PRESENT
== END 2021-03-01 14:40 | disposition still patient (30) | DRG 885 ==
LOC: GPS 17:27
PROVIDERS: ADMIT Psychiatry & Neurology Psychiatry
DX: F25.0 Schizoaffective disorder, bipolar type (principal); N17.0 Acute kidney failure with tubular necrosis; N18.9 Chronic kidney disease, unspecified; E11.65 Type 2 diabetes mellitus with hyperglycemia; Z68.41 Body mass index [BMI] 40.0-44.9, adult; Q89.01 Asplenia (congenital); E44.1 Mild protein-calorie malnutrition; E11.51 Type 2 diabetes mellitus with diabetic peripheral angiopathy without gangrene; D72.829 Elevated white blood cell count, unspecified; F29 Unspecified psychosis not due to a substance or known physiological condition; E66.01 Morbid (severe) obesity due to excess calories; E78.5 Hyperlipidemia, unspecified; Z73.6 Limitation of activities due to disability; J45.909 Unspecified asthma, uncomplicated; M41.9 Scoliosis, unspecified; G24.01 Drug induced subacute dyskinesia; G47.33 Obstructive sleep apnea (adult) (pediatric); I12.9 Hypertensive chronic kidney disease with stage 1 through stage 4 chronic kidney disease, or unspecified chronic kidney disease; E11.22 Type 2 diabetes mellitus with diabetic chronic kidney disease; R74.8 Abnormal levels of other serum enzymes; Z91.19 Patient's noncompliance with other medical treatment and regimen
CPT/HCPCS: 36415; 71045-TC; 80048-TC; 80053-TC; 82306; 83735-TC; 84100-TC; 85025-TC; J1630; J1631; J2060; J3490

== ENCOUNTER 2022-11-13 15:15 | Inpatient (IN) | payer MEDICARE ==
[~2022-11-13] VITALS: Ht 162.6 cm; Wt 49.9 kg
[~2022-11-13 15:15] MED LIST: ALBU8.5H8 IH; ARIP400S IM; ATOR20TA PO; BENZ0.5T43 PO; GLIP10TA11 PO; KETO5DRO9 OP; LOSA25TA27 PO; METF-442 PO
[2022-11-13] MEDS ORDERED: HALOPERIDOL LACTATE INJ 5 MG/ML VIAL IM ONE (16:30)
[2022-11-13] MEDS ORDERED: HALOPERIDOL LACTATE INJ 5 MG/ML VIAL ONE (16:34)
--- NOTE | 2022-11-13 16:39 | NUR ---
HALDOL IM GIVEN RIGHT DELTOID INDICATED
--- NOTE | 2022-11-13 17:05 | NUR ---
GLASS VIAL FILLER/MED RECON UNABLE TO OBTAIN HOME MEDICATION INFORMATION. CALLED AND SPOKE WITH JACQUIE ([phone]). PER JACQUIE, PATIENT STOP TAKING ALL HER MEDICATION 4-6 MONTHS AGO AND HE IS UNBLE TO PROVIDE ANY INFO.
[2022-11-13 17:43] LABS: HEMATOCRIT 37 % (33-45); HEMOGLOBIN 11.6 g/dL (11.5-14.8); MEAN CORPUSCULAR HGB CONC 32 g/dl (31.0-36.0); MEAN CORPUSCULAR VOLUME 86 fL (82-100); PLATELET COUNT (AUTO) 418 K/uL (150-450); RED BLOOD CELL COUNT(AUTO) 4.26 MIL/uL (4.0-5.2); WHITE BLOOD COUNT (AUTO) 11.1 K/uL (4.3-11.0)
--- NOTE | 2022-11-13 17:46 | NUR ---
URINE SAMPLE COLLECTED AND SENT TO LAB
[2022-11-13 18:20] LABS: ALANINE AMINOTRANSFERASE 17 U/L (12-78); ALBUMIN 2.8 g/dL (3.4-5.0); ALCOHOL, BLOOD < 3 mg/dL (0-0); ALKALINE PHOSPHATASE 130 U/L (46-116); ASPARTATE AMINOTRANSFERASE 22 U/L (15-37); BILIRUBIN,DIRECT 0.1 mg/dL (0.0-0.2); BILIRUBIN,TOTAL 0.2 mg/dL (0.2-1.0); CALCIUM, SERUM 8.5 mg/dL (8.5-10.1); CARBON DIOXIDE 33 mmol/L (21-32); CHLORIDE 105 mmol/L (98-107); GLUCOSE 100 mg/dL (74-106); POTASSIUM 3.4 mmol/L (3.5-5.1); SODIUM SERUM 140 mmol/L (136-145); TOTAL PROTEIN, SERUM 6.7 g/dL (6.4-8.2); UREA NITROGEN, BLOOD 26 mg/dL (7-18)
[2022-11-13 18:28] LABS: ACETAMINOPHEN 0 ug/ml (10-30)
--- NOTE | 2022-11-13 19:15 | NUR ---
COVID SWAB COLLECTED AND SENT TO LAB
[2022-11-13 19:25] LABS: BILIRUBIN,URINE NEGATIVE (NEGATIVE); COLOR,URINE YELLOW (YELLOW); LEUKOCYTE ESTERASE ,URINE NEGATIVE (NEGATIVE); NITRITE, URINE POSITIVE (NEGATIVE); PROTEIN,URINE NEGATIVE (NEGATIVE); UGLUCOSE NEGATIVE (NEGATIVE)
[2022-11-13 21:24] LABS: BACTERIA,URINE 4+ /HPF (None Seen); RBC,URINE 0-2 /HPF (0-2); SQUAMOUS EPITHELIAL CELL,UR 0-2 /HPF (None Seen); WBC,URINE 0-2 /HPF (0-3)
--- NOTE | 2022-11-13 21:34 | NUR ---
REPORT GIVEN TO [facility]
[2022-11-13 21:45] VITALS: BP 144/78
[2022-11-13] MEDS ORDERED: MAG HYDROX/AL HYDROX/SIMETH 30 ML UDC PO PRN (22:00)
[2022-11-13] MEDS ORDERED: BLOOD SUGAR DIAGNOSTIC 1 EACH STRIP IN ONE (22:00)
[2022-11-13] MEDS ORDERED: TEMAZEPAM 7.5 MG CAPSULE PO PRN (22:00)
[2022-11-13] MEDS ORDERED: MAGNESIUM HYDROXIDE 30 ML UDC PO PRN (22:00)
--- NOTE | 2022-11-13 22:10 | NUR ---
PATIENT TRANSFERRED TO [facility] IN STABLE CONDITION
--- NOTE | 2022-11-13 22:15 | NUR ---
RN NOTE: ADMITTED A 67-Y/O, FEMALE, FROM [facility] INITIALLY PATIENT CAME FROM HOME. ADMITTED ON A 5150 HOLD FOR DTO/DTS/GD. PER HOLD, PATIENT WAS HIGHLY AGITATED, UNPREDICTABLE BEHAVIOR, YELLING/SCREAMING, DELUSIONAL, PARANOID, POOR JUDGEMENT AND POOR INSIGHT. UPON FACE TO FACE EVALUATION, PATIENT IS ALERT AND ORIENTED X1, PT. IS ANXIOUS, DISORGANIZED, YELLING AND SCREAMING, RESISTIVE TO CARE, DISHEVELED AND UNKEMPT. SKIN ASSESSMENT DONE. PT UNABLE TO SIGN ADMISSION PAPERWORK DUE TO AGGRESSIVE BEHAVIOR. PT. REFUSED FLU/PNEUMONIA VACCINE. PT ALSO REFUSED TO COMMENT ABOUT FLU/PNA VACCINATION AND REFUSING TO GET ONE. ALL BELONGINGS WERE SCREENED FOR CONTRABAND. PATIENT'S RIGHTS WERE DISCUSSED AND BOOKLET WAS GIVEN. CONTACTED DR. MCMILLAN AND HOSPITALIST MIGUEL GAY AND INFORMED THEM OF THE ADMISSION. BED IN LOWEST POSITION, LOCKED. SAFETY PRECAUTIONS MAINTAINED. WILL CONTINUE TO MONITOR Q15 MINS FOR MOOD, SAFETY AND BEHAVIOR. Addendum: 11/14/22 at 0719 by JOSIE VEGA RN PATIENT REFUSED MRSA SWAB. EXPLAINED RISKS/BENEFITS. PATIENT STILL REFUSED.
[2022-11-13] MEDS ORDERED: DEXTROSE 50%-WATER 50 ML DISP.SYRIN IV PRN (23:30)
[2022-11-14] MEDS: clonazePAM 0.5 MG TABLET PO PRN (02:53)
--- NOTE | 2022-11-14 02:54 | NUR ---
RN NOTE PATIENT IS ANXIOUS AND RESTLESS. ADMINISTERED KLONOPIN 0.5MG PO HOWEVER PATIENT REFUSED. PATIENT STATED, "NO, GET OUT OF HERE". KLONOPIN 0.5MG PO WASTED IN MEDICATION DISPOSAL BIN AND OMNICELL WITNESSED BY ANOTHER RN.
[2022-11-14 03:39] LABS: EOSINOPHILS % (MANUAL) 3 % (0-4); LYMPHOCYTES % (MANUAL) 14 % (16-48); MONOCYTES % (MANUAL) 5 % (0-11.0); NEUTROPHILS % (MANUAL) 78 (42-76)
--- NOTE | 2022-11-14 05:28 | NUR ---
RN NOTE: CHEMICAL RESTRAINT PATIENT HAS BEEN SCREAMING AND YELLING, AGGRESSIVE TOWARDS STAFF WHILE RENDERING MORNING CARE, DISRUPTIVE TO THE UNIT AND RESISTIVE TO CARE. MIGUEL. WILIAM NOTIFIED REGARDING PATIENT'S CURRENT BEHAVIOR WITH NEW ORDERS OF ATIVAN 1MG IM ONCE AND ZYPREXA 5MG IM ONCE NOTED AND CARRIED OUT. 0545 - ADMINISTERED ATIVAN 1MG ONCE AND ZYPREXA 5MG IM ONCE ON GLUTEAL AREA. PATIENT TOLERATED WELL. PATIENT WAS PHYSICALLY HELD FOR 2 MINUTES WHILE ADMINISTERING IM SHOT WITH 1 RN AND 2 CASKET TRIMMER. WILL CONTINUE TO MONITOR FOR PATIENT'S SAFETY.
[2022-11-14] MEDS ORDERED: OLANZAPINE 10 MG VIAL IM ONE (06:00)
[2022-11-14] MEDS ORDERED: LORAZEPAM INJ 2 MG/ML VIAL IM PRN (06:00)
[2022-11-14] MEDS: BLOOD SUGAR DIAGNOSTIC 1 EACH STRIP IN SCH ×4 (07:55→21:41)
[2022-11-14 08:00] VITALS: BP 136/78
[2022-11-14] MEDS: Z GUARD REMEDY 4 OZ OINT TP SCH ×2 (08:56→21:30)
--- NOTE | 2022-11-14 10:41 | NUR ---
Treatment Plan: Pt unable to sign treatment plan and was confused.
--- NOTE | 2022-11-14 10:41 | NUR ---
HINA Initial Discharge Plan: Patient currently resides at home located at [address], [place] [address]; ([phone]). Patient's Romel ([phone]) is invovled in pt's care. SW will contact pt's partner Romel to gather collateral and discuss treatment/discharge plan. HINA will work with the MD, treatment team, and family to help coordinate appropriate discharge.
--- NOTE | 2022-11-14 10:42 | NUR ---
HINA Clinical Note: Pt placed on a 5150 hold for danger to self, danger to others, and GD. Pt was aggressive at home. Patient currently resides at home located at [address] [place] [address], [place] [address]; ([phone]). Patient's Romel ([phone]) is invovled in pt's care. SW will contact pt's partner Romel to gather collateral and discuss treatment/discharge plan.
[2022-11-14] MEDS: DIVALPROEX SODIUM 125 MG CAP.SPRINK PO SCH ×2 (13:00→17:00)
[2022-11-14 13:05] LABS: CREATININE 0.7 mg/dL (0.6-1.3)
--- NOTE | 2022-11-14 13:20 | NUR ---
[facility] Family Contact: SW attempted to contact pt's partner Romel ([phone]) and discussed treatment plan and discharge plan. He stated that he would want pt back home when stable.
[2022-11-14 16:00] VITALS: BP 135/78
[2022-11-14] MEDS: OLANZAPINE 10 MG TABLET PO SCH (17:00)
[2022-11-14 20:50] VITALS: BP_SYST 115; BP_SYST 142; BP_DIAS 75; BP_DIAS 77
--- NOTE | 2022-11-14 22:00 | NUR ---
RN NOTE PATIENT REFUSED ACCUCHECK. EXPLAINED RISKS/BENEFITS BUT PATIENT BECAME AGITATED.
--- NOTE | 2022-11-14 23:37 | NUR ---
RN NOTE PATIENT STARTED TO YELL AND SCREAM, ARGUMENTATIVE AND LOUD AT 2337. REDIRECTED PATIENT'S BEHAVIOR. ASSISTED PATIENT BACK TO BED AND WENT BACK TO SLEEP AT 2350. WILL CONTINUE TO MONITOR PATIENT'S SAFETY.
--- NOTE | 2022-11-15 07:25 | NUR ---
RN NOTE PATIENT REFUSED AM LABS.
[2022-11-15] MEDS: BLOOD SUGAR DIAGNOSTIC 1 EACH STRIP IN SCH ×4 (07:30→21:25)
[2022-11-15 08:00] VITALS: BP 128/72
--- NOTE | 2022-11-15 08:04 | NUR ---
WOUND CARE CONSULT: PT UNCOOPERATIVE AND CURSING AT STAFF. UNABLE TO DO SKIN ASSESSMENT AT THIS TIME. REVIEWED CHART, NURSING DOCUMENTATION (SACRAL REDNESS) AND PHOTO. DISCUSSED SKIN PROTECTION WITH NURSING STAFF. CURRENT VANCE SCORE IS 16. MD IN AGREEMENT WITH PLAN OF CARE.
[2022-11-15] MEDS: OLANZAPINE 10 MG TABLET PO SCH ×2 (09:00→16:39)
[2022-11-15] MEDS: Z GUARD REMEDY 4 OZ OINT TP SCH ×2 (09:00→21:16)
--- NOTE | 2022-11-15 09:59 | NUR ---
RN-CO: REFUSED VPA . ENC 3X STILL REFUSED.
--- NOTE | 2022-11-15 11:20 | NUR ---
PATIENT REFUSED MEDS, HANDTOOLS REPAIRER ATTEMPTED TO EDUCATE PATIENT. PATENT BECAME LOUD, BELLIGERENT AND STARTED TO THROW LINENS. UNABLE TO REDIRECT. HANDTOOLS REPAIRER WALKED AWAY TO DEFUSE THE SITUATION. WAQAS Walters RN, BSN
[2022-11-15] MEDS: ENSURE ENLIVE CHOC 237 ML CAN PO SCH ×2 (12:00→16:12)
[2022-11-15 16:00] VITALS: BP 140/84
--- NOTE | 2022-11-15 16:13 | NUR ---
RN-CO: PT REFUSED ENSURE AND THREW IT ON THE FLOOR.
--- NOTE | 2022-11-15 16:44 | NUR ---
RN-CO: PT REFUSED ZYPREXA AND BLOOD SUGAR CHECK. SHE THRENED TO THROW THE WATER TO RN.
[2022-11-15 19:55] VITALS: BP 146/96
[2022-11-15] MEDS: DIVALPROEX SODIUM 125 MG CAP.SPRINK PO SCH (20:10)
--- NOTE | 2022-11-15 20:11 | NUR ---
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
--- NOTE | 2022-11-15 21:26 | NUR ---
Patient refused blood sugar check states that I am not a diabetic. are you guys stupid.
[2022-11-16] MEDS: BLOOD SUGAR DIAGNOSTIC 1 EACH STRIP IN SCH ×4 (06:41→21:53)
--- NOTE | 2022-11-16 06:42 | NUR ---
Patient continues to refuse blood sugar check.
[2022-11-16 08:00] VITALS: BP 139/68
[2022-11-16] MEDS: ENSURE ENLIVE CHOC 237 ML CAN PO SCH ×3 (08:00→16:47)
[2022-11-16] MEDS: OLANZAPINE 10 MG TABLET PO SCH (09:00)
[2022-11-16] MEDS: DIVALPROEX SODIUM 125 MG CAP.SPRINK PO SCH ×3 (09:00→16:46)
[2022-11-16] MEDS: Z GUARD REMEDY 4 OZ OINT TP SCH ×2 (09:00→21:53)
--- NOTE | 2022-11-16 10:05 | NUR ---
ms rn patient refused blood draw again.
--- NOTE | 2022-11-16 14:44 | NUR ---
HINA Note: HINA received a call from a bilingual case manager named Xiomara ([phone]) who is from the Act Team trying to connect the pt to resources. She asked the technical writer and editor to give pt resources. HINA stated this technical writer and editor will give pt clinic resources. She recommended this technical writer and editor to share [place] program.
[2022-11-16 16:00] VITALS: BP 158/68
[2022-11-16] MEDS: HALOPERIDOL LACTATE INJ 5 MG/ML VIAL IM PRN (16:38)
[2022-11-16] MEDS: HALOPERIDOL 5 MG TABLET PO SCH (16:46)
--- NOTE | 2022-11-16 18:43 | NUR ---
ms rn patient was so confuse, disoriented ,agitated and shouting, refusing all medications,haldol was given im for management, will monitor patient,will endorse to third shift lieutenant for naya.
[2022-11-16 20:00] VITALS: BP 116/76
--- NOTE | 2022-11-16 20:42 | NUR ---
MOTOR WINDER : Received patient inside her room Patient appears disorganized, confused and hyperverbal. Denies hurting herself. Encouraged patient to verbalized feelings and thoughts. Will continue to monitor for safety and behavior.
[2022-11-16] MEDS: INSULIN REGULAR, HUMAN 100 UNIT/ML 3 ML VIAL SQ PRN (21:53)
[2022-11-16] MEDS: clonazePAM 0.5 MG TABLET PO PRN (23:17)
[2022-11-17] MEDS: BLOOD SUGAR DIAGNOSTIC 1 EACH STRIP IN SCH ×4 (07:30→21:49)
[2022-11-17 08:00] VITALS: BP 132/76
[2022-11-17] MEDS: ENSURE ENLIVE CHOC 237 ML CAN PO SCH ×3 (08:00→16:46)
[2022-11-17] MEDS: DIVALPROEX SODIUM 125 MG CAP.SPRINK PO SCH ×3 (08:14→16:46)
[2022-11-17] MEDS: HALOPERIDOL 5 MG TABLET PO SCH ×2 (08:14→16:46)
[2022-11-17] MEDS: Z GUARD REMEDY 4 OZ OINT TP SCH ×2 (08:15→21:00)
[2022-11-17] MEDS: HALOPERIDOL LACTATE INJ 5 MG/ML VIAL IM PRN ×2 (08:16→16:48)
--- NOTE | 2022-11-17 08:30 | NUR ---
GPS/RN PT REFUSED ACCUCHECK AND PO MEDS IN AM OFFERED X3. HALDOL 5MG IM GIVEN ORDERED
--- NOTE | 2022-11-17 12:09 | NUR ---
GPS/RN PT REFUSED ACCUCHECK FOR 1200 OFFERED X3
[2022-11-17 16:00] VITALS: BP 110/66
--- NOTE | 2022-11-17 19:50 | NUR ---
RN NOTE RECEIVED PT IN GERICHAIR , ASLEEP, A/O X3, VERBALLY RESPONSIVE . NO SIGNS OF ACUTE DISTRESS NOTED. NO COMPLAINTS OF PAIN AT THIS TIME. STABLE ON ROOM AIR, BREATHING EVEN AND UNLABORED. PT ASSISTED WITH TURNING AND REPOSITIONING Q2 HR AND PRN FOR COMFORT AND CIRCULATION. PT HAS NO NEEDS AT THIS TIME.
[2022-11-17 20:00] VITALS: BP 141/71
[2022-11-17] MEDS: INSULIN REGULAR, HUMAN 100 UNIT/ML 3 ML VIAL SQ PRN (21:50)
--- NOTE | 2022-11-17 21:51 | NUR ---
RN NOTE [facility] REFUSED INSULIN PT KEPT SAYING " IM NOT I DON'T NEED IT.... YOU DON'T LIKE ME BECAUSE IM UGLY I KNOW YOU DON'T YOUR A LIAR" TRIED X3 PT STILL KEPT REFUSING.
[2022-11-18] MEDS: BLOOD SUGAR DIAGNOSTIC 1 EACH STRIP IN SCH ×4 (07:30→21:41)
--- NOTE | 2022-11-18 07:46 | NUR ---
GPS/RN PT REFUSED ACCUCHECK OFFERED X3
[2022-11-18 08:00] VITALS: BP 133/89
[2022-11-18] MEDS: HALOPERIDOL 5 MG TABLET PO SCH ×4 (08:13→17:00)
[2022-11-18] MEDS: DIVALPROEX SODIUM 125 MG CAP.SPRINK PO SCH ×3 (08:13→17:00)
[2022-11-18] MEDS: ENSURE ENLIVE CHOC 237 ML CAN PO SCH ×3 (08:14→17:30)
[2022-11-18] MEDS: Z GUARD REMEDY 4 OZ OINT TP SCH ×2 (08:14→20:18)
[2022-11-18] MEDS: HALOPERIDOL LACTATE INJ 5 MG/ML VIAL IM PRN ×3 (08:17→17:31)
[2022-11-18] MEDS ORDERED: HALOPERIDOL DECANOATE IM 100 MG/ML AMPUL IM ONE (13:00)
[2022-11-18 16:00] VITALS: BP 128/74
[2022-11-18 20:43] VITALS: BP 103/58
[2022-11-18] MEDS: INSULIN REGULAR, HUMAN 100 UNIT/ML 3 ML VIAL SQ PRN (21:41)
--- NOTE | 2022-11-18 21:42 | NUR ---
RN notes Pt BS HS was 134. Pt refuses coverage. explained risks and benefits. Pt keep refusing. Will continue to monitor.
[2022-11-19] MEDS: BLOOD SUGAR DIAGNOSTIC 1 EACH STRIP IN SCH ×4 (07:25→22:00)
--- NOTE | 2022-11-19 07:26 | NUR ---
RN NOTES PATIENT REFUSED ACCUCHECK THIS MORNING AND STATED THAT SHE DIDN'T LIKE THE BLOOD SUGAR MONITORING MACHINE AND ALSO STATED THAT SHE'S NOT DIABETIC.
[2022-11-19] MEDS: ENSURE ENLIVE CHOC 237 ML CAN PO SCH ×3 (07:57→17:18)
[2022-11-19 08:00] VITALS: BP 149/83
[2022-11-19] MEDS: HALOPERIDOL 5 MG TABLET PO SCH ×3 (08:35→17:00)
[2022-11-19] MEDS: Z GUARD REMEDY 4 OZ OINT TP SCH ×2 (08:35→21:00)
[2022-11-19] MEDS: DIVALPROEX SODIUM 125 MG CAP.SPRINK PO SCH ×3 (08:35→17:00)
--- NOTE | 2022-11-19 08:53 | NUR ---
RN NOTES PATIENT REFUSED HER HALDOL AND DIVALPROEX SODIUM THIS MORNING DESPITE EDUCATING THE BENEFITS AND RISKS. PT STATED '.I DON'T LIKE THOSE MEDICINES'
[2022-11-19] MEDS: HALOPERIDOL LACTATE INJ 5 MG/ML VIAL IM PRN ×2 (10:39→17:24)
--- NOTE | 2022-11-19 10:45 | NUR ---
RN NOTES PT HAS BEEN REFUSING HER PSYCH MEDS. PRN HALDOL 5MG IM ADMINISTERED AT 1039. WILL CONTINUE TO MONITOR
[2022-11-19] MEDS: INSULIN REGULAR, HUMAN 100 UNIT/ML 3 ML VIAL SQ PRN (11:58)
[2022-11-19 16:00] VITALS: BP 147/86
--- NOTE | 2022-11-19 17:28 | NUR ---
RN NOTES PATIENT REFUSED HER PM HALDOL 5MG TAB AND DIVALPROEX SODIUM 250MG TAB. PRN HALDOL 5MG/ML IM ADMINISTERED PER MD ORDER.
--- NOTE | 2022-11-19 19:25 | NUR ---
GPS RN NOTE RECEIVED PT SITTING IN MARTIR CHAIR , AWAKE. PT IS A/O X3, ABLE TO VERBALIZE NEEDS. PT IS GUARDED, AND SUSPICIOUS. NO SIGNS OF ACUTE DISTRESS NOTED. NO COMPLAINTS OF PAIN AT THIS TIME. STABLE ON ROOM AIR, BREATHING EVEN AND UNLABORED. SAFETY MEASURES IMPLEMENTED. WILL CONTINUE TO MONITOR PT FOR SAFETY.
[2022-11-19 20:58] VITALS: BP 143/79
--- NOTE | 2022-11-20 06:47 | NUR ---
GPS RN NOTE PT LEFT IN STABLE CONDITION. ALL NEEDS ATTENDED, ALL MEDS ADMINISTERED ON TIMELY MANNER. NO ACUTE DISTRESS, OR PAIN NOTED. FIRST PT REFUSED SKIN ASSESSMENT, AND PICTURES. BUT LATER PT AGREED TO DO SIN ASSESSMENT, AND TAKE PICTURES. PICTURE OF PT'S SACRAL AREA TAKEN, AND PLACED IN CHART. WILL ENDORSE PT TO AM SHIFT NURSE FOR CONTINUITY OF CARE.
[2022-11-20] MEDS: BLOOD SUGAR DIAGNOSTIC 1 EACH STRIP IN SCH ×4 (07:30→21:30)
--- NOTE | 2022-11-20 07:30 | NUR ---
RN NOTE PATIENT REFUSED ACCUCHECK. STATED "I DON'T WANT TO. I'M NOT AN EMPLOYEE HERE, I'M THE BOSS. SO GO AWAY, YOU'RE NOT A GOOD EMPLOYEE". WILL CONTINUE TO MONITOR PATIENT.
[2022-11-20 08:00] VITALS: BP 114/68
[2022-11-20] MEDS: DIVALPROEX SODIUM 125 MG CAP.SPRINK PO SCH ×3 (09:00→17:00)
[2022-11-20] MEDS: ENSURE ENLIVE CHOC 237 ML CAN PO SCH ×3 (09:00→17:04)
[2022-11-20] MEDS: HALOPERIDOL 5 MG TABLET PO SCH ×3 (09:00→17:00)
[2022-11-20] MEDS: Z GUARD REMEDY 4 OZ OINT TP SCH ×2 (09:33→21:31)
--- NOTE | 2022-11-20 09:44 | NUR ---
RN NOTE PATIENT REFUSED ALL MORNING MEDS, AND WENT BACK TO SLEEP. PATIENT IS RIESED. HALDOL IM NOT GIVEN AT TIME, PATIENT IS SLEEPING. WILL CONTINUE TO MONITOR PATIENT AND WILL ADMINISTER HALDOL MEDICATION NEEDED.
[2022-11-20] MEDS: HALOPERIDOL LACTATE INJ 5 MG/ML VIAL IM PRN ×2 (12:49→17:11)
--- NOTE | 2022-11-20 12:49 | NUR ---
RN NOTE PATIENT REFUSED ORAL MEDICATIONS, PATIENT IS RIESED. HALDOL 5 MG IM GIVEN ORDERED.
[2022-11-20 16:00] VITALS: BP 117/87
--- NOTE | 2022-11-20 17:11 | NUR ---
RN NOTE PATIENT REFUSED ORAL MEDICATIONS, PATIENT IS RIESED. HALDOL 5 MG IM GIVEN ORDERED.
--- NOTE | 2022-11-20 18:41 | NUR ---
GPS RN NOTE PATIENT UP IN MARTIR CHAIR, AWAKE, RESTLESS. REFUSED ALL ORAL MEDICATIONS, HALDOL 5 MG IM GIVEN ORDERED. ALSO REFUSED BLOOD SUGAR CHECKS. SAFETY MEASURE MAINTAINED. WILL ENDORSE TO NEXT SHIFT FOR CONTINUITY OF CARE.
--- NOTE | 2022-11-20 21:30 | NUR ---
RN NOTE PATIENT REFUSED ACCUCHECK. PATIENT STATED "I DON'T WANT TO. I'M NOT DIABETIC". WILL CONTINUE TO MONITOR PATIENT.
[2022-11-20 21:57] VITALS: BP 141/87
[2022-11-21] MEDS: BLOOD SUGAR DIAGNOSTIC 1 EACH STRIP IN SCH ×4 (07:30→21:33)
[2022-11-21 08:00] VITALS: BP 128/87
[2022-11-21] MEDS: ENSURE ENLIVE CHOC 237 ML CAN PO SCH ×3 (08:00→17:00)
[2022-11-21] MEDS: Z GUARD REMEDY 4 OZ OINT TP SCH ×2 (09:00→21:33)
[2022-11-21] MEDS: HALOPERIDOL 5 MG TABLET PO SCH ×3 (09:00→17:00)
[2022-11-21] MEDS: DIVALPROEX SODIUM 125 MG CAP.SPRINK PO SCH ×2 (09:30→21:00)
[2022-11-21] MEDS ORDERED: HALOPERIDOL DECANOATE IM 100 MG/ML AMPUL IM ONE (13:00)
[2022-11-21] MEDS: OLANZAPINE 10 MG VIAL IM PRN ×2 (13:35→18:27)
[2022-11-21 16:09] VITALS: BP 122/85
[2022-11-21 19:31] VITALS: BP 136/76
--- NOTE | 2022-11-21 21:30 | NUR ---
RN NOTE PATIENT REFUSED SCHEDULED DEPAKOTE FOR TONIGHT AND ACCUCHECK. PATIENT STATED "I DON'T WANT TO. I'M NOT DIABETIC". AND I DON'T TAKE ANY MEDICATION". OFFERED X3. BUT PATIENT CONTINUED TO REFUSE AND BECAME AGITATED. WILL CONTINUE TO MONITOR PATIENT.
[2022-11-22 07:15] LABS: CREATININE 0.9 mg/dL (0.6-1.3); MAGNESIUM 2.3 mg/dL (1.8-2.4); POTASSIUM 3.9 mmol/L (3.5-5.1)
[2022-11-22] MEDS: BLOOD SUGAR DIAGNOSTIC 1 EACH STRIP IN SCH ×5 (07:30→22:00)
[2022-11-22 07:34] LABS: BASOPHILS % (AUTO) 0.4 % (0.0-2.0); EOSINOPHILS % (AUTO) 9.2 % (0.0-6.0); HEMATOCRIT 38 % (33-45); HEMOGLOBIN 12.2 g/dL (11.5-14.8); LYMPHOCYTES # (AUTO) 1.8 K/uL (0.8-4.8); MEAN CORPUSCULAR HGB CONC 32 g/dl (31.0-36.0); MEAN CORPUSCULAR VOLUME 86 fL (82-100); MONOCYTES # (AUTO) 0.8 K/uL (0.1-1.30); NEUTROPHILS # (AUTO) 4.7 K/uL (1.8-8.9); NEUTROPHILS % (AUTO) 58.4 % (43.0-81.0); PLATELET COUNT (AUTO) 381 K/uL (150-450); RED BLOOD CELL COUNT(AUTO) 4.44 MIL/uL (4.0-5.2)
[2022-11-22 08:00] VITALS: BP 137/80
[2022-11-22] MEDS: ENSURE ENLIVE CHOC 237 ML CAN PO SCH ×3 (08:07→17:22)
[2022-11-22] MEDS: Z GUARD REMEDY 4 OZ OINT TP SCH ×2 (08:58→22:12)
[2022-11-22] MEDS: DIVALPROEX SODIUM 125 MG CAP.SPRINK PO SCH ×2 (08:58→20:45)
[2022-11-22] MEDS: HALOPERIDOL 5 MG TABLET PO SCH ×2 (08:58→17:00)
[2022-11-22 16:00] VITALS: BP 122/81
[2022-11-22] MEDS: OLANZAPINE 10 MG VIAL IM PRN (18:01)
--- NOTE | 2022-11-22 18:10 | NUR ---
NURSE NOTE: PT REFUSED PM HALDOL. ZYPREXA IM ADMINISTERED ORDERED PER REISE. PT STANLEY WELL. WILL CONT TO MONITOR.
[2022-11-22 19:55] VITALS: BP 130/71
--- NOTE | 2022-11-22 22:11 | NUR ---
Refused scheduled blood sugar check, stating she is not diabetic, offered 3x but still refused. Uncooperative with verbally aggressive behavior toward the staff. Remains on ryan chair, secured
[2022-11-23] MEDS: BLOOD SUGAR DIAGNOSTIC 1 EACH STRIP IN SCH ×5 (07:30→21:05)
--- NOTE | 2022-11-23 07:44 | NUR ---
RN-NOTES PATIENT REFUSED ACCU -CHECK DESPITE EXPLANATIONS RISK AND BENEFITS.OFFERED X3. PATIENT SCREAMING AND YELLING USING FOUL LANGUAGES AT THE HARBOR ENGINEER.
[2022-11-23 08:00] VITALS: BP 137/83
[2022-11-23] MEDS: ENSURE ENLIVE CHOC 237 ML CAN PO SCH ×3 (08:00→17:06)
--- NOTE | 2022-11-23 08:58 | NUR ---
HINA Family Contact: HINA contacted pt's partner Romel ([phone]) and discussed pt's discharge. Partner Romel stated that pt will possibly need a SNF. SW stated that this automotive service writer will attempt to find a facility.
--- NOTE | 2022-11-23 08:59 | NUR ---
SNF Referral: HINA sent clinicals to [facility] ([phone]) for placement. HINA sent H & P, progress notes, and medication list.
[2022-11-23] MEDS: HALOPERIDOL 5 MG TABLET PO SCH ×2 (09:00→17:18)
[2022-11-23] MEDS: DIVALPROEX SODIUM 125 MG CAP.SPRINK PO SCH ×2 (09:00→20:27)
[2022-11-23] MEDS: Z GUARD REMEDY 4 OZ OINT TP SCH ×2 (09:24→20:29)
[2022-11-23] MEDS: OLANZAPINE 10 MG VIAL IM PRN (09:33)
--- NOTE | 2022-11-23 09:34 | NUR ---
RN-NOTES PATIENT REFUSED DEPAKOTE 250MG P.O AND HALDOL 5MG P.O. PATIENT STATED" YOU ARE GOING TO POISON ME,I WILL NOT TAKE IT". OFFERED X3 STILL REFUSED. ZYPREXA 5MG IM GIVEN ORDERED. PATIENT IS RIESED.
--- NOTE | 2022-11-23 10:03 | NUR ---
SNF Contact: SW received a call from Jovanna admin ([phone]) from [facility] who stated that pt is accepted.
[2022-11-23 16:00] VITALS: BP 126/76
--- NOTE | 2022-11-23 18:24 | NUR ---
RN-NOTES PATIENT IN THE ROOM UP IN THE MARTIR CHAIR AWAKE, A/O X1,GUARDED. NONCOMPLIANT WITH P.O MEDICATIONS IN AM. REFUSED ACCU CHECK THIS SHIFT.STATED" I'M NOT DIABETIC YOU BITCH". NOTED WITH HYPERVERBAL,ARGUMENTATIVE WITH STAFF, IRRITABLE VERBALLY ABUSIVE TO THE STAFF,UNCOOPERATIVE WITH CARE.NEEDS FREQUENT REDIRECTED. NEEDS MODERATE ASSIST WITH ADL'S.ALL NEEDS ATTENDED AND ANTICIPATED. WILL CONT. MONITORING FOR SAFETY AND BEHAVIOR.WILL ENDORSE TO INCOMING NURSE FOR CONTINUITY OF CARE.
[2022-11-23 20:00] VITALS: BP 119/78
--- NOTE | 2022-11-23 20:09 | NUR ---
GPS SUPERINTENDENT COMMUNICATIONS NOTE RECEIVED PT AWAKE , A/O X 3 , ANXIOUS, SITTING IN MARTIR CHAIR IN HER ROOM, ABLE TO VERBALIZE NEEDS. PT IS GUARDED, AND SUSPICIOUS. NO SIGNS OF ACUTE DISTRESS NOTED. NO COMPLAINTS OF PAIN AT THIS TIME. STABLE ON ROOM AIR, BREATHING EVEN AND UNLABORED. SAFETY MEASURES IMPLEMENTED. WILL CONTINUE TO MONITOR PT FOR SAFETY.
[2022-11-23] MEDS: ACETAMINOPHEN 325 MG TABLET PO PRN (20:27)
--- NOTE | 2022-11-23 20:30 | NUR ---
PT REQUESTED PRN TYLENOL FOR C/O GENERALIZED BACK PAIN, PRN TYLENOL 650 MG GIVEN TO PT. DUE MEDICATION DEPAKOTE- REFUSED BY PT , OFFERED 3 X AND EDUCATED PT WITH IMPORTANCE OF TAKING HER MEDICATION, STILL REFUSING, RISK AND BENEFITS EDUCATION PROVIDED TO PT. PT IS VERY SUSPICIOUS AND ARGUMENTATIVE. WILL CONT TO MONITOR AND ANTICIPATE NEEDS.
--- NOTE | 2022-11-23 21:05 | NUR ---
PT REFUSED ACCU CHECK- OFFERED 3 X , STILL REFUSED STATING -" I DON'T NEED IT, I HAVE ALREADY GIVEN 6 BOTTLES OF BLOOD THIS MORNING THAT'S ENOUGH" EDUCATED PT OF RISK AND BENEFITS, STILL REFUSED, ARGUMENTATIVE AND ANXIOUS. PT IS ALSO NOTED VERY DEMANDING, ASKING FOR JUICE AND SNACKS EVERY 10-15 MINS, HYPERVERBAL AND VERY DEMANDING . SNACKS PROVIDED TO PT, AND ATTENDED NEEDS, CONT TO MONITOR SAFETY AND BEHAVIOR.
--- NOTE | 2022-11-23 21:30 | NUR ---
1 HR POST TYLENOL, NO C/O PAIN AT THIS TIME, BUT REMAINS VERY LOUD AND DEMANDING. HYPERVERBAL TO STAFF. WILL CONT TO MONITOR BEHAVIOR AND SAFETY.
--- NOTE | 2022-11-23 22:39 | NUR ---
OFFERED PT PRN MEDICATION FOR ANXIETY AND INSOMNIA- BOTH MEDICATIONS REFUSED BY PT.,OFFERED 3X AND PROVIDED PT EDUCATION FOR RISK AND BENEFITS, BUT STILL NON COMPLIANT AND REFUSING MEDICATIONS. WILL CONT TO MONITOR BEHAVIOR AND SAFETY.
--- NOTE | 2022-11-24 01:08 | NUR ---
PT IN HER BEDROOM, NOTED ASLEEP, EASY TO AROUSE, BREATHING EVEN AND UNLABORED, SAFETY MEASURES OBSERVED. WILL CONT TO MONITOR AND ANTICIPATE NEEDS.
--- NOTE | 2022-11-24 04:38 | NUR ---
PT UP AND AWAKE, REQUESTING FOR NEW GOWN AND BLANKET, BOILER SHOP MECHANIC OFFERED PT ADL ASSISTANCE BUT REFUSING, PT STATING SHE CAN CLEAN HERSELF AND REFUSED HELP. NEEDS PROVIDED. CONT TO MONITOR BEHAVIOR AND SAFETY.
--- NOTE | 2022-11-24 06:11 | NUR ---
ERP MANAGER NOTES PATIENT IN THE ROOM UP AND AWAKE, A/O X1,GUARDED. NONCOMPLIANT WITH P.O MEDICATIONS LAST NIGHT, REFUSED PRN MEDICATION FOR INSOMNIA REFUSED ACCU CHECK LAST NIGHT. NOTED WITH HYPERVERBAL,ARGUMENTATIVE WITH STAFF, IRRITABLE VERBALLY ABUSIVE TO THE STAFF,UNCOOPERATIVE WITH CARE.NEEDS FREQUENT REDIRECTED.TRASHING IN HER BEDROOM MOST OF THE TIME THAT SHE WAS AWAKE, REFUSES ASSISTANCE WITH ADL'S. ALL NEEDS ATTENDED AND ANTICIPATED. WILL CONT. MONITORING FOR SAFETY AND BEHAVIOR.WILL ENDORSE TO INCOMING NURSE FOR CONTINUITY OF CARE.
[2022-11-24] MEDS: BLOOD SUGAR DIAGNOSTIC 1 EACH STRIP IN SCH ×4 (07:30→22:00)
[2022-11-24] MEDS: ENSURE ENLIVE CHOC 237 ML CAN PO SCH ×3 (07:42→17:04)
[2022-11-24 08:00] VITALS: BP 118/61
[2022-11-24] MEDS: Z GUARD REMEDY 4 OZ OINT TP SCH ×2 (09:39→21:59)
[2022-11-24] MEDS: HALOPERIDOL 5 MG TABLET PO SCH ×2 (09:56→17:04)
[2022-11-24] MEDS: DIVALPROEX SODIUM 125 MG CAP.SPRINK PO SCH ×2 (09:56→21:57)
[2022-11-24 16:00] VITALS: BP 117/64
--- NOTE | 2022-11-24 19:11 | NUR ---
RN-NOTES PATIENT IN THE ROOM UP IN THE MARTIR CHAIR AWAKE, A/O X1,GUARDED. COMPLIANT WITH P.O MEDICATIONS TODAY. REFUSED ACCU CHECK THIS SHIFT. NOTED WITH HYPERVERBAL,ARGUMENTATIVE WITH STAFF, IRRITABLE VERBALLY ABUSIVE TO THE STAFF,EPISODE OF DISROBING,UNCOOPERATIVE WITH CARE.NEEDS FREQUENT REDIRECTED. NEEDS MODERATE ASSIST WITH ADL'S.ALL NEEDS ATTENDED AND ANTICIPATED. WILL CONT. MONITORING FOR SAFETY AND BEHAVIOR.WILL ENDORSE TO INCOMING NURSE FOR CONTINUITY OF CARE.
--- NOTE | 2022-11-24 19:45 | NUR ---
LAST SORTER NOTES: RECEIVED PATIENT IN HALLWAY SITTING IN MARTIR CHAIR. A/O X1. HYPERVERBAL AND ARGUMENTATIVE TO STAFF. NEEDS FREQUENT REDIRECTION. ON ROOM AIR. BREATHING EVEN AND UNLABORED. NO ACUTE DISTRESS NOTED. NO C/O PAIN AT THIS TIME. SAFETY MEASURES IN PLACE. WILL CONTINUE TO MONITOR FOR SAFETY AND BEHAVIOR.
[2022-11-24 20:00] VITALS: BP 157/96
--- NOTE | 2022-11-24 22:30 | NUR ---
PICTURE FRAME MAKER NOTES: PATIENT REFUSED ACCU-CHECK. OFFERED X3. EXPLAINED THE RISKS AND BENEFITS. PT STILL REFUSED.
--- NOTE | 2022-11-25 07:05 | NUR ---
SYSTEM INTEGRATION ENGINEER NOTES: PATIENT IN HER ROOM SLEEPING,. CALM AND COMFORTABLE. EASILY AROUSED . NO ACUTE DISTRESS NOTED. PATIENT HAD EPISODES OF SCREAMING AT STAFF. ANGRY. REDIRECTING NEEDED. NEEDS ANTICIPATED AND RENDERED. SAFETY MEASURES IN PLACE. WILL ENDORSE TO ONCOMING SHIFT FOR CONTINUITY OF CARE.
[2022-11-25] MEDS: BLOOD SUGAR DIAGNOSTIC 1 EACH STRIP IN SCH ×4 (07:30→21:58)
[2022-11-25 08:00] VITALS: BP 144/66
[2022-11-25] MEDS: ENSURE ENLIVE CHOC 237 ML CAN PO SCH ×3 (08:47→17:49)
[2022-11-25] MEDS: HALOPERIDOL 5 MG TABLET PO SCH ×3 (09:00→17:00)
[2022-11-25] MEDS: DIVALPROEX SODIUM 125 MG CAP.SPRINK PO SCH ×3 (09:00→21:00)
[2022-11-25] MEDS: Z GUARD REMEDY 4 OZ OINT TP SCH ×2 (09:33→21:00)
[2022-11-25 16:00] VITALS: BP 114/90
[2022-11-25] MEDS: OLANZAPINE 10 MG VIAL IM PRN (17:49)
--- NOTE | 2022-11-25 18:31 | NUR ---
NURSE NOTE: PT REFUSED ALL PO MEDS DURING SHIFT. ZYPREXA IM ADMINISTERED PER REISE. PT STANLEY WELL. WILL CONT TO MONITOR.
[2022-11-25 19:54] VITALS: BP 115/84
[2022-11-25 20:18] VITALS: BP 115/89
--- NOTE | 2022-11-26 04:57 | NUR ---
RESTLESS, AGITATED, DISORGANIZED, THROWING BLANKETS, CLOTHES AND TRASH IN ROOM. ALWAYS PACING THE HALLWAY, DEMANDING FOOD, STATING " I AM THE BOSS HERE." DOES NOT RESPOND TO DIRECTION, REFUSED PM MEDICATIONS, REFUSED ACCUCHECK. KEPT SAFE WILL CONTINUE TO MONITOR.
[2022-11-26] MEDS: BLOOD SUGAR DIAGNOSTIC 1 EACH STRIP IN SCH ×4 (07:30→21:39)
[2022-11-26 08:00] VITALS: BP 147/89
[2022-11-26] MEDS: ENSURE ENLIVE CHOC 237 ML CAN PO SCH ×3 (08:31→16:00)
[2022-11-26] MEDS: HALOPERIDOL 5 MG TABLET PO SCH ×2 (08:54→17:00)
[2022-11-26] MEDS: DIVALPROEX SODIUM 125 MG CAP.SPRINK PO SCH ×2 (08:54→21:00)
[2022-11-26] MEDS: Z GUARD REMEDY 4 OZ OINT TP SCH ×2 (08:55→21:32)
[2022-11-26] MEDS: OLANZAPINE 10 MG VIAL IM PRN (08:57)
--- NOTE | 2022-11-26 08:57 | NUR ---
RN NOTE PATIENT REFUSED BLOOD SUGAR CHECK, REFUSED ALL MORNING MEDICATIONS, OFFERED X3, STRONGLY REFUSED. PATIENT STATED "I'M THE BOSS HERE. I DON'T TAKE MEDICATIONS EVER". ZYPREXA 5 MG IM GIVEN ORDERED.
[2022-11-26 16:00] VITALS: BP 140/69
--- NOTE | 2022-11-26 19:30 | NUR ---
GPS RN OPENING NOTE RECEIVED PATIENT IN HER ROOM SITTING ON BED. A/OX1. PT STABLE ON ROOM AIR. NO SOB OR S/S OF RESPIRATORY DISTRESS. BREATHING EVEN AND UNLABORED. PT IS DISORGANIZED, CONFUSED,DISHEVELED, UNKEMPT, PARANOID, DELUSIONAL, UNCOOPERATIVE WITH EPISODE OF SHOUTING AT STAFF. SAFETY PRECAUTIONS IN PLACE. WILL CONTINUE TO MONITOR Q15MIN ROUNDS FOR SAFETY AND BEHAVIOR.
[2022-11-26 20:36] VITALS: BP 135/85
--- NOTE | 2022-11-26 21:59 | NUR ---
RN NOTE PT REFUSED DEPAKOTE AND BLOOD SUGAR CHECK. OFFERED X3 AND STILL STRONGLY REFUSED. STARTED HITTING HER WALKER AGAINST THE WALL AND STATED "I WON'T TAKE ANYTHING YOU GIVE ME. GET THAT MACHINE OUT OF HERE. I WON'T GIVE MY BLOOD. I'M NOT EVEN DIABETIC". CHARGE NURSE AWARE.
[2022-11-27] MEDS: BLOOD SUGAR DIAGNOSTIC 1 EACH STRIP IN SCH ×5 (07:30→21:06)
[2022-11-27 08:00] VITALS: BP 157/95
[2022-11-27] MEDS: ENSURE ENLIVE CHOC 237 ML CAN PO SCH ×3 (08:10→17:04)
[2022-11-27] MEDS: DIVALPROEX SODIUM 125 MG CAP.SPRINK PO SCH ×2 (09:00→20:56)
[2022-11-27] MEDS: HALOPERIDOL 5 MG TABLET PO SCH ×2 (09:00→17:00)
[2022-11-27] MEDS: Z GUARD REMEDY 4 OZ OINT TP SCH ×2 (09:16→21:00)
[2022-11-27] MEDS: clonazePAM 0.5 MG TABLET PO SCH ×3 (10:00→17:00)
[2022-11-27 16:00] VITALS: BP 132/72
[2022-11-27] MEDS: OLANZAPINE 10 MG VIAL IM PRN (17:03)
[2022-11-27 20:40] VITALS: BP 155/96
--- NOTE | 2022-11-27 22:00 | NUR ---
RN NOTE PATIENT REFUSED DEPAKOTE AND BLOOD SUGAR CHECK. OFFERED X3 AND STILL STRONGLY REFUSED. PATIENT STATED "I'M NOT DIABETIC AND I AM NOT TAKING ANY MEDICATION". CHARGE NURSE AWARE.
[2022-11-28] MEDS: BLOOD SUGAR DIAGNOSTIC 1 EACH STRIP IN SCH ×4 (07:30→21:17)
[2022-11-28 08:00] VITALS: BP 122/70
[2022-11-28] MEDS: clonazePAM 0.5 MG TABLET PO SCH ×3 (09:00→16:49)
[2022-11-28] MEDS: HALOPERIDOL 5 MG TABLET PO SCH ×2 (09:00→16:49)
[2022-11-28] MEDS: DIVALPROEX SODIUM 125 MG CAP.SPRINK PO SCH ×2 (09:00→21:00)
[2022-11-28] MEDS: ENSURE ENLIVE CHOC 237 ML CAN PO SCH ×3 (09:25→16:49)
[2022-11-28] MEDS: Z GUARD REMEDY 4 OZ OINT TP SCH ×2 (09:27→21:04)
[2022-11-28] MEDS: OLANZAPINE 10 MG VIAL IM PRN ×2 (09:50→16:48)
[2022-11-28 16:00] VITALS: BP 113/52
[2022-11-28] MEDS: INSULIN REGULAR, HUMAN 100 UNIT/ML 3 ML VIAL SQ PRN (17:26)
[2022-11-28 20:31] VITALS: BP 128/72
--- NOTE | 2022-11-28 21:42 | NUR ---
RN NOTE PATIENT REFUSED DEPAKOTE AND BLOOD SUGAR CHECK. DESPITE OF EDUCATION PROVIDED REGARDING MEDICATION COMPLIANCE PATIENT CONTINUED TO REFUSE. WILL CONTINUE TO MONITOR.
[2022-11-29] MEDS: BLOOD SUGAR DIAGNOSTIC 1 EACH STRIP IN SCH ×4 (07:30→21:51)
[2022-11-29 08:00] VITALS: BP 137/82
--- NOTE | 2022-11-29 08:00 | NUR ---
pt refused am meds and blood sugar finger stick, pt states " I don't need medication, I don't need my sugar checked! I am not a patient here, I own this place." Addendum: 11/29/22 at 0951 by SADE CARMONA RN rn returned meds to [facility] per hosp protocol, with RN witnessed.
[2022-11-29] MEDS: HALOPERIDOL 5 MG TABLET PO SCH ×4 (08:07→16:23)
[2022-11-29] MEDS: clonazePAM 0.5 MG TABLET PO SCH ×4 (08:07→16:18)
[2022-11-29] MEDS: DIVALPROEX SODIUM 125 MG CAP.SPRINK PO SCH ×3 (08:07→21:00)
[2022-11-29] MEDS: ENSURE ENLIVE CHOC 237 ML CAN PO SCH ×3 (09:48→17:25)
[2022-11-29] MEDS: Z GUARD REMEDY 4 OZ OINT TP SCH ×2 (09:48→21:51)
[2022-11-29] MEDS: OLANZAPINE 10 MG VIAL IM PRN (10:55)
--- NOTE | 2022-11-29 10:55 | NUR ---
per Marysol, given Kepra IM at R gluteal muscle per pt request refused Haldol at 0900,
--- NOTE | 2022-11-29 11:04 | NUR ---
RN-CO: DR MCMILLAN MADE AWARE THAT PT'S 14 DAY HOLD IS EXPIRING TODAY.
[2022-11-29 16:00] VITALS: BP 125/63
--- NOTE | 2022-11-29 16:24 | NUR ---
RN NOTES: PT TOOK KLONOPIN BUT DECLINED HALDOL. PT STATES "I DON'T TAKE THAT, IM NOT CUCKOO". RN EXPLAINED PURPOSE OF EACH MED, PT STILL REFUSED, HALDOL WASTED PER HOSP PROTOCOL.
[2022-11-29 19:51] VITALS: BP 152/83
[2022-11-29] MEDS: INSULIN REGULAR, HUMAN 100 UNIT/ML 3 ML VIAL SQ PRN (21:51)
--- NOTE | 2022-11-29 21:53 | NUR ---
BS checked. 190 with regular insulin coverage 3 units. Pt refused insulin coverage and medication Depakote 250 mg at 2100. Explained risk and benefits. Offered x 3 and still refused. Pt states, " i am not diabetic and i don"t take insulin". No s/s of hypo/hyperglycemia. No s/s of any kind of distress. Charge nurse aware. Will continue to monitor. Will endorse to next shift.
[2022-11-30] MEDS: ACETAMINOPHEN 325 MG TABLET PO PRN (01:03)
--- NOTE | 2022-11-30 01:03 | NUR ---
Pt c/o neck pain 02/02. Tylenol 650 mg po prn given as ordered. Will continue to monitor.
--- NOTE | 2022-11-30 02:10 | NUR ---
Post 1 hr Tylenol effective. LA 0/10. Will continue to monitor. Frequent visual check done for safety.
[2022-11-30] MEDS: BLOOD SUGAR DIAGNOSTIC 1 EACH STRIP IN SCH ×2 (07:30→12:00)
[2022-11-30] MEDS: ENSURE ENLIVE CHOC 237 ML CAN PO SCH ×2 (07:51→12:47)
[2022-11-30 08:00] VITALS: BP 149/91
[2022-11-30] MEDS: DIVALPROEX SODIUM 125 MG CAP.SPRINK PO SCH (08:18)
[2022-11-30] MEDS: clonazePAM 0.5 MG TABLET PO SCH ×2 (08:18→12:57)
[2022-11-30] MEDS: HALOPERIDOL 5 MG TABLET PO SCH (08:18)
[2022-11-30] MEDS: Z GUARD REMEDY 4 OZ OINT TP SCH (08:22)
--- NOTE | 2022-11-30 09:12 | NUR ---
HINA Discharge Note: [facility] located at [address] [place] [address]; ([phone]). Please arrange ambulance at 1PM. Pediatrician Managing Partner spoke with Marnie/Mavis Change Management Specialist ([phone]) who stated patient will be accepted at facility today. Patient is alert and oriented x1. Patient denies any suicidal or homicidal ideations. Patient is aware and agreeable with discharge plans. Patients partner Romel ([phone]) is aware of discharge, SW has left messages multiple times. Patient will continue to follow-up with (psychiatrist) Dr. Harvey located at [address] [facility] [address], [place] [address]; ([phone]) and (Slag Worker) Dr. Quesada [address] [facility] [address] [address]; ([phone]). Patient presents with euthymic mood and congruent affect.
--- NOTE | 2022-11-30 14:28 | NUR ---
RN-NOTES PATIENT HAD A DISCHARGE ORDER FROM DR. MCMILLAN ( PSYCHIATRIST) DR. LAMA MEDICALLY CLEARED PATIENT FOR DISCHARGE. PATIENT WAS DISCHARGE TO [facility] .REPORT WAS GIVEN TO ALICE (BOILERMAKER FITTER). PATIENT WAS AIR CONDITIONING TECHNICIAN BY AMBULANCE VIA GURNEY WITH TWO STAFF ASSIST, PATIENT DID NOT VERBALIZE SI/HI,DENIES VISUAL/AUDITORY HALLUCINATIONS AT THE TIME OF DISCHARGE. PATIENT LEFT THE UNIT IN STABLE CONDITION A/O X2 IN STABLE CONDITION. ALL BELONGINGS WAS GIVEN BACK TO THE PATIENT.PATIENT'S JACQUIE ETIENNE WAS NOTIFIED ON THE DISCHARGE. Addendum: 12/01/22 at 0809 by YONATHAN BILLY RN IN ADDITION TO MY ABOVE NOTES ON 11/30/21, PATIENT REFUSED TO HAVE SKIN ASSESSMENT PRIOR TO DISCHARGE. PATIENT STATED" MY SKIN IS PERFECTLY HEALTHY ,I DON'T WANT YOU TO SEE OR TAKE PICTURES".
== END 2022-11-30 14:30 | DRG 885 ==
LOC: ER 15:16 → GPS 21:35
PROVIDERS: ADMIT Psychiatry & Neurology Psychiatry; ATTEND Nurse Practitioner Acute Care
DX: F25.0 Schizoaffective disorder, bipolar type (principal); E44.0 Moderate protein-calorie malnutrition; R64 Cachexia; Z68.1 Body mass index [BMI] 19.9 or less, adult; F29 Unspecified psychosis not due to a substance or known physiological condition; E11.51 Type 2 diabetes mellitus with diabetic peripheral angiopathy without gangrene; E88.09 Other disorders of plasma-protein metabolism, not elsewhere classified; E78.5 Hyperlipidemia, unspecified; F31.9 Bipolar disorder, unspecified; F41.9 Anxiety disorder, unspecified; I10 Essential (primary) hypertension; J45.909 Unspecified asthma, uncomplicated; Z73.6 Limitation of activities due to disability; Z91.199 Patient's noncompliance with other medical treatment and regimen due to unspecified reason; Z20.822 Contact with and (suspected) exposure to COVID-19; Z79.899 Other long term (current) drug therapy
CPT/HCPCS: 36415; 80048-TC; 80061-TC; 80076-TC; 80164-TC; 81001; 82565-TC; 82962-TC; 83735-TC; 85025-TC; 87086-TC; C9803; G0480; J1630; J1631; J1815; J2060; J3490

== ENCOUNTER 2025-09-19 15:53 | Inpatient (IN) | payer MEDICARE ==
[~2025-09-19] VITALS: Ht 152.4 cm; Wt 65.8 kg
[2025-09-19 16:58] LABS: PLATELET COUNT (AUTO) 352 K/uL (150-450); RED BLOOD CELL COUNT(AUTO) 4.69 MIL/uL (4.0-5.2); RED CELL DISTRIBUTION WIDTH 12.4 % (11.5-15.0); WHITE BLOOD COUNT (AUTO) 9.0 K/uL (4.3-11.0)
[2025-09-19 17:22] LABS: ASPARTATE AMINOTRANSFERASE 43.0 U/L (15-37); CALCIUM, SERUM 9.1 mg/dL (8.5-10.1); CREATININE 0.9 mg/dL (0.6-1.3); SODIUM SERUM 138.0 mmol/L (136-145); TOTAL PROTEIN, SERUM 7.1 g/dL (6.4-8.2); UREA NITROGEN, BLOOD 20.0 mg/dL (7-18)
[2025-09-19 19:34] LABS: APPEARANCE,URINE CLEAR (CLEAR); BLOOD, URINE NEGATIVE Ery/uL (NEGATIVE); LEUKOCYTE ESTERASE ,URINE NEGATIVE (NEGATIVE); NITRITE, URINE NEGATIVE (NEGATIVE); UGLUCOSE NEGATIVE (NEGATIVE)
[2025-09-19 19:40] LABS: ADD URINE CULTURE YES; SQUAMOUS EPITHELIAL CELL,UR Moderate /HPF (None Seen)
[2025-09-19 19:58] LABS: AMPHETAMINE, URINE NEGATIVE (NEGATIVE); BARBITURATE, URINE NEGATIVE (NEGATIVE); BENZODIAZEPINE, URINE NEGATIVE (NEGATIVE); CANNABINOID, URINE NEGATIVE (NEGATIVE); COCCAINE, URINE NEGATIVE (NEGATIVE); OPIATE, URINE NEGATIVE (NEGATIVE)
[2025-09-19 20:00] VITALS: BP 151/71; TEMP 99.3; O2SAT 97
[2025-09-19] MEDS ORDERED: OLAN10TA3 PO (20:41)
[2025-09-19] MEDS ORDERED: HALO5TAB PO (20:56)
[2025-09-19] MEDS ORDERED: DIVA125C5 PO (20:56)
[2025-09-19] MEDS ORDERED: BENZ0.5T43 PO (20:56)
[2025-09-19] MEDS ORDERED: MIRT-90 PO (20:56)
[2025-09-19] MEDS ORDERED: FAMO20TA8 PO (20:56)
[2025-09-19] MEDS ORDERED: ATOR20TA PO (20:56)
[2025-09-19] MEDS ORDERED: FLUT1BLS IH (20:56)
[2025-09-19 21:24] VITALS: BP 151/74; TEMP 99.3; O2SAT 97
[2025-09-19] MEDS ORDERED: QUETIAPINE FUMARATE 25 MG TABLET PO PRN (22:00)
[2025-09-19] MEDS ORDERED: QUETIAPINE FUMARATE 25 MG TABLET PO ONE (22:00)
[2025-09-19] MEDS ORDERED: ZOLPIDEM TARTRATE 5 MG TABLET PO PRN (22:00)
[2025-09-19] MEDS ORDERED: MAG HYDROX/AL HYDROX/SIMETH 30 ML UDC PO PRN (22:00)
[2025-09-19] MEDS ORDERED: MAGNESIUM HYDROXIDE 30 ML UDC PO PRN (22:00)
[2025-09-19] MEDS: BLOOD SUGAR DIAGNOSTIC 1 EACH STRIP IN ONE (22:02)
[2025-09-20 08:00] VITALS: BP 130/83; TEMP 98.1; O2SAT 97
[2025-09-20 08:17] LABS: ASPARTATE AMINOTRANSFERASE 35.0 U/L (15-37); CALCIUM, SERUM 8.9 mg/dL (8.5-10.1); CREATININE 0.9 mg/dL (0.6-1.3); SODIUM SERUM 140.0 mmol/L (136-145); TOTAL PROTEIN, SERUM 6.8 g/dL (6.4-8.2); UREA NITROGEN, BLOOD 22.0 mg/dL (7-18)
[2025-09-20 08:24] LABS: LDL 89 mg/dL (0-99)
[2025-09-20] MEDS: FLUTICASONE/VILANTEROL 1 EACH BLST.W.DEV IH SCH (09:00)
[2025-09-20] MEDS: BENZTROPINE MESYLATE (1 MG) 1 MG TABLET PO SCH (09:25)
[2025-09-20] MEDS: ATORVASTATIN 10 MG TABLET PO SCH (09:25)
[2025-09-20] MEDS: FAMOTIDINE (20 MG) 20 MG TABLET PO SCH (09:27)
[2025-09-20 16:00] VITALS: BP_SYST 103; BP_SYST 159; BP_DIAS 69; BP_DIAS 70; TEMP 97.5; TEMP 97.9; O2SAT 96; O2SAT 98
[2025-09-20] MEDS: ACETAMINOPHEN 325 MG TABLET PO PRN (17:20)
[2025-09-20] MEDS: DIVALPROEX SODIUM 125 MG TABLET.DR PO SCH (17:20)
[2025-09-20] MEDS ORDERED: LOPERAMIDE HCL (2 MG CAP) 2 MG CAPSULE PO PRN (19:00)
[2025-09-20 21:12] VITALS: BP 135/78; TEMP 98.1; O2SAT 97
[2025-09-20 21:52] LABS: CREATININE 1.3 mg/dL (0.6-1.3)
[2025-09-21 08:00] VITALS: BP 110/67; TEMP 97.8; O2SAT 96
[2025-09-21 16:00] VITALS: BP 125/70; TEMP 97.7; O2SAT 100
[2025-09-21] MEDS: NEOMY SULF/BACITRAC ZN/POLY 15 GM TUBE TP SCH (16:22)
[2025-09-21] MEDS: OLANZAPINE 2.5 MG TABLET PO SCH (20:17)
[2025-09-21] MEDS: DIVALPROEX SODIUM 125 MG TABLET.DR PO SCH (20:17)
[2025-09-21 20:32] VITALS: BP 130/67; TEMP 97.8; O2SAT 100
[2025-09-22 08:00] VITALS: BP 111/73; TEMP 97.7; O2SAT 97
[2025-09-22] MEDS: BENZTROPINE MESYLATE (1 MG) 1 MG TABLET PO SCH (08:41)
[2025-09-22 16:00] VITALS: BP 117/64; TEMP 97.7; O2SAT 99
[2025-09-22 20:08] VITALS: BP 109/76; TEMP 97.9; O2SAT 100
[2025-09-23 08:00] VITALS: BP_SYST 100; BP_SYST 119; BP_DIAS 65; TEMP 98.4; TEMP 98.7; O2SAT 100; O2SAT 98
[2025-09-23 20:12] VITALS: BP 124/78; TEMP 98.4; O2SAT 98
[2025-09-23] MEDS: DIVALPROEX SODIUM 125 MG TABLET.DR PO SCH (20:31)
[2025-09-24 08:00] VITALS: BP 112/79; TEMP 97.7; O2SAT 99
[2025-09-24] MEDS: OLANZAPINE 2.5 MG TABLET PO SCH ×2 (11:04→20:53)
[2025-09-24 16:00] VITALS: BP 129/87; TEMP 97.3; O2SAT 99
[2025-09-25 08:00] VITALS: BP 134/77; TEMP 97.5; O2SAT 96
[2025-09-25 16:00] VITALS: BP 107/70; TEMP 98; O2SAT 98
[2025-09-25 21:49] VITALS: BP 120/62; TEMP 98.2; O2SAT 99
[2025-09-26 08:00] VITALS: BP 124/80; TEMP 97.7; O2SAT 99
[2025-09-26] MEDS: OLANZAPINE 2.5 MG TABLET PO SCH (10:15)
[2025-09-26 16:13] VITALS: BP 109/69; TEMP 97.9; O2SAT 100
[2025-09-26 22:03] VITALS: BP 121/61; TEMP 98; O2SAT 100
[2025-09-27 08:00] VITALS: BP 156/74; TEMP 97.9; O2SAT 94
[2025-09-27 16:00] VITALS: BP 108/70; TEMP 97.5; O2SAT 95
[2025-09-27 20:15] VITALS: BP 103/57; TEMP 97.5; O2SAT 98
[2025-09-28 08:00] VITALS: BP 121/73; TEMP 98.4; O2SAT 98
[2025-09-28 16:00] VITALS: BP 120/73; TEMP 98.1; O2SAT 100
[2025-09-28 19:40] VITALS: BP 112/58; TEMP 97.9; O2SAT 99
[2025-09-29 08:00] VITALS: BP 130/78; TEMP 98; O2SAT 100
[2025-09-29 16:09] VITALS: BP 122/80; TEMP 98.7; O2SAT 96
[2025-09-29 20:14] VITALS: BP 116/58; TEMP 98.5; O2SAT 98
[2025-09-30 08:00] VITALS: BP 110/77; TEMP 98.1; O2SAT 97
[2025-09-30] MEDS: DIVALPROEX SODIUM 125 MG TABLET.DR PO SCH (14:02)
[2025-09-30 16:00] VITALS: BP 124/74; TEMP 98.2; O2SAT 98
[2025-09-30 20:10] VITALS: BP 110/78; TEMP 98.2; O2SAT 98
[2025-10-01 08:00] VITALS: BP 118/74; TEMP 97.7; O2SAT 94
[2025-10-01 16:00] VITALS: BP 112/67; TEMP 97.9; O2SAT 99
[2025-10-01 20:19] VITALS: BP 125/69; TEMP 97.9; O2SAT 99
[2025-10-02 08:00] VITALS: BP 114/68; TEMP 97.5; O2SAT 98
[2025-10-02 16:00] VITALS: BP 119/76; TEMP 97.2; O2SAT 96
[2025-10-02 20:19] VITALS: BP 126/78; TEMP 97.8; O2SAT 98
[2025-10-03 08:00] VITALS: BP 137/78; TEMP 97.8; O2SAT 100
[2025-10-03 16:00] VITALS: BP 116/70; TEMP 98.6; O2SAT 98
[2025-10-03 20:35] VITALS: BP 112/64; TEMP 98.6; O2SAT 97
[2025-10-04 08:00] VITALS: BP 119/72; TEMP 97.5; O2SAT 100
[2025-10-04 16:00] VITALS: BP 95/70; TEMP 97.9; O2SAT 96
[2025-10-04 19:59] VITALS: BP 124/75; TEMP 97.7; O2SAT 100
[2025-10-05 08:00] VITALS: BP 101/79; TEMP 98.7; O2SAT 99
[2025-10-05 16:00] VITALS: BP 117/69; TEMP 97.9; O2SAT 98
[2025-10-05 20:10] VITALS: BP 126/76; TEMP 97.7; O2SAT 99
[2025-10-06 08:00] VITALS: BP 122/53; TEMP 97.8; O2SAT 99
[2025-10-06 16:10] VITALS: BP 97/71; TEMP 98.1; O2SAT 96
[2025-10-06 17:00] VITALS: BP 105/80; TEMP 98.2; O2SAT 96
[2025-10-06 20:08] VITALS: BP 116/75; TEMP 98.8; O2SAT 97
[2025-10-07 07:42] VITALS: BP 125/80; TEMP 97.7; O2SAT 98
[2025-10-07 08:00] VITALS: BP 125/80; TEMP 97.7; O2SAT 98
== END 2025-10-07 13:35 | DRG 885 ==
LOC: ER 16:25 → GPS 20:12
PROVIDERS: ADMIT Acupuncturist; ATTEND Nurse Practitioner Acute Care
DX: F39 Unspecified mood [affective] disorder (principal); F33.3 Major depressive disorder, recurrent, severe with psychotic symptoms; L02.31 Cutaneous abscess of buttock; F03.918 Unspecified dementia, unspecified severity, with other behavioral disturbance; E66.9 Obesity, unspecified; F25.9 Schizoaffective disorder, unspecified; J45.909 Unspecified asthma, uncomplicated; I10 Essential (primary) hypertension; F03.93 Unspecified dementia, unspecified severity, with mood disturbance; E78.5 Hyperlipidemia, unspecified; Z87.440 Personal history of urinary (tract) infections; Z20.822 Contact with and (suspected) exposure to COVID-19; F29 Unspecified psychosis not due to a substance or known physiological condition; Z91.199 Patient's noncompliance with other medical treatment and regimen due to unspecified reason; Z68.28 Body mass index [BMI] 28.0-28.9, adult; Z73.6 Limitation of activities due to disability
CPT/HCPCS: 36415; 80048-TC; 80053-TC; 80061-TC; 80076-TC; 80164-TC; 81001; 82565-TC; 82962-TC; 85025-TC; 87081-TC; 87086-TC; 97110-TC; 97116-TC; 97530-TC